=== PATIENT | male | born 1945 | race Caucasian/White ===

== ENCOUNTER 2019-04-17 12:21 | Inpatient (IN) ==
--- NOTE | 2019-04-17 13:01 | Emergency Department Note ---
General Adult HPI - General Chief complaint: Abdominal Pain Stated complaint: abdominal pain Time Seen by Provider: 04/17/19 12:27 Source: patient Mode of arrival: wheelchair Limitations: no limitations - History of Present Illness HPI Narrative: 74-year-old male patient is brought into the emergency department via his caregivers. Patient lives in some form of assisted care facility. His caregivers tell me that over the last week he has been complaining of sharp abdominal pain. This morning patient had a considerably large bowel movement. Caregivers tell me that the stool was much darker than his normal. It covered most of his bed. Patient is been bit more lethargic over the last several days. He has been on multiple courses of antibiotics for cellulitis to his left elbow as well as a developing chest infection. They deny any overt fevers. They deny considerable shortness of breath or respiratory distress. They deny any nausea or vomiting. They admit to worsening generalized weakness. Patient is considered nonambulatory but has been able to assist in movement and positioning until today. A review of his active problems shows the following: Dementia, left elbow contusion with cellulitis, UTI, hypertension, history of smoking, chronic back pain, wheezing, IBS, hypertension, hiatal hernia, epigastric pain, BPH, depression, chronic pain, anxiety, anemia. - Related Data Home Medications Medication Instructions Recorded Confirmed Aspirin [[place] Aspirin EC] 81 mg PO QAM 03/22/19 04/17/19 Celecoxib [Celebrex] 200 mg PO DAILY 03/22/19 04/17/19 Divalproex Sodium [Depakote ER] 250 mg PO BID 03/22/19 04/17/19 Furosemide [Lasix] 20 mg PO Q48 03/22/19 04/17/19 Gabapentin [Neurontin] 400 mg PO Q8 03/22/19 04/17/19 Isosorbide Mononitrate [Imdur] 30 mg PO DAILY 03/22/19 04/17/19 Losartan Potassium 25 mg PO DAILY 03/22/19 04/17/19 Magnesium Oxide [Magnesium] 400 mg PO DAILY 03/22/19 04/17/19 Methocarbamol [Robaxin] 500 mg PO TID 03/22/19 04/17/19 Misoprostol [Cytotec] 100 mcg PO TIDCC 03/22/19 04/17/19 Niacin [Niaspan] 1,000 mg PO DAILY 03/22/19 04/17/19 Sertraline [Zoloft] 100 mg PO DAILY 03/22/19 04/17/19 amLODIPine [Norvasc] 5 mg PO DAILY 03/22/19 04/17/19 levETIRAcetam [Levetiracetam] 1,000 mg PO BID 03/22/19 04/17/19 traZODone HCL [Trazodone HCl] 200 mg PO DAILY 03/22/19 04/17/19 Divalproex 250 mg PO BID 04/17/19 04/17/19 LORazepam [Lorazepam] 0.5 mg PO BID PRN 04/17/19 04/17/19 oxyCODONE HCL [Oxycodone HCl] 5 mg PO PRN PRN 04/17/19 04/17/19 Allergies Allergy/AdvReac Type Severity Reaction Status Date / Time amitriptyline Allergy Unknown Unknown Verified 03/22/19 19:31 tamsulosin [From Flomax] Allergy Unknown Hives Verified 03/22/19 19:31 trazodone Allergy Unknown Hives Verified 03/22/19 19:31 Review of Systems All systems ED: reviewed and negative except as stated. Past Medical History - Past Medical History Medical history: Reports: other (Arthralgias of the hip, chronic back pain, hypertension, hiatal hernia, bph, depression) - Social History smoking status: Former smoker Alcohol use: Reports: Heavy (-4 drinks a day or more) Drug use: Reports: none Physical Exam Limitations: no limitations General appearance: alert (Patient is alert and responds to questioning. He answers some of my questions with simple yes or no. He is able to tell me his full complete name. He is unsure where he is at. He is in no apparent r espiratory distress. He does not appear to be in any pain.) Eye: Present: PERRL, EOMI, miosis (constriction). Absent: scleral icterus ENT: Present: normal oropharynx, mucous membranes moist Neck: Present: trachea midline. Absent: lymphadenopathy, thyromegaly Chest: Present: symmetric chest wall rise Respiratory: Present: normal lung sounds bilaterally. Absent: respiratory distress, wheezes, stridor, accessory muscle use, prolonged expiratory phase Cardiovascular: Present: regular rate, normal rhythm. Absent: systolic murmur, diastolic murmur Abdominal: Present: soft. Absent: distention, tenderness, guarding, rebound, rigidity, organomegaly, mass Rectal: Present: normal inspection, normal rectal tone, heme (-) stool : Present: other (He is currently incontinent of urine.) Extremities: Present: normal inspection. Absent: normal capillary refill (Less than 3 seconds.), pedal edema Neurological: Present: alert. Absent: oriented X3 Psychiatric: Present: depressed, flat affect Skin: Present: cool, dry, pallor Course Course Narrative: Patient was brought into the emergency department and a history and physical exa m was performed. Saline lock was established and laboratory studies were drawn. His abdominal exam was benign so no further abdominal imaging is warranted. His YOU showed negative guaiac stools. A review his laboratory studies show the following: CBC RBC 3.0, hemoglobin 9.8, to 28.7. CMP sodium 121, chloride 87, glucose 111, all other normal limits. After reviewing all the data and noted the patient's profound hyponatremia and I reached out to the hospitalist about possible admission. I spoke to the hospitalist (Dr. Yarbrough) about the patient's low sodium level and need for further management. Dr. Sanz recommended normal saline 1000 mL bolus. I expressed my concerns about the patient having some form of reaction previously with past boluses. Dr. Sanz verbalized understanding but gave the go ahead for the infusion. I ordered up the normal saline bolus from the scene of 500mL x 2. At this time Dr. Sanz has consented to receive the patient into the hospital. All further treatment decisions and modalities will be carried out by Dr. Sanz. Vital Signs Temperature 97.5 F 04/17/19 12:22 Pulse Rate 84 04/17/19 12:22 Respiratory Rate 84 H 04/17/19 12:22 Blood Pressure 129/65 04/17/19 12:22 Pulse Oximetry (%) 97 04/17/19 12:22 Temperature 97.5 F 04/17/19 12:22 Pulse Rate 64 04/17/19 15:43 Respiratory Rate 13 04/17/19 15:43 Blood Pressure 86/47 04/17/19 15:43 Pulse Oximetry (%) 92 04/17/19 15:43 Medical Decision Making - Lab Data Lab results reviewed: Yes I reviewed the patient's lab results. Result diagrams: 04/17/19 13:20 04/17/19 13:20 Lab Results 04/17/19 04/17/19 Range/Units 13:20 13:20 WBC 10.4 (4.5-11.0) K/mcL RBC 3.00 L (4.50-5.90) M/mcL Hgb 9.8 L (13.5-16.5) g/dL Hct 28.7 L (41.0-55.0) % MCV 95.5 (80.0-100.0) fL MCH 32.5 (26.0-34.0) pg MCHC 34.1 (31.0-36.0) g/dL RDW 14.5 (11.5-14.5) % Plt Count 270 (140-440) K/mcL MPV 6.6 L (7.4-10.4) fL Gran % 77.7 (38.0-78.0) % Lymph % (Auto) 9.9 L (15.5-49.0) % [place] % (Auto) 11.5 (1.0-12.0) % Eos % (Auto) 0.7 (0.0-7.0) % Baso % (Auto) 0.2 (0.0-2.0) % Gran # 8.0 (1.8-8.0) K/mcL Lymph # (Auto) 1.0 L (1.5-4.8) K/mcL [place] # (Auto) 1.2 H (0.1-0.9) K/mcL Eos # (Auto) 0.1 (0.0-0.7) K/mcL Baso # (Auto) 0 (0.0-0.3) K/mcL Sodium 121 L (133-145) mmol/L Potassium 4.1 (3.3-5.1) mmol/L Chloride 87 L (96-108) mmol/L Carbon Dioxide 25 (22-30) mmol/L Anion Gap 9.0 (8-16) BUN 16 (8-23) mg/dl Creatinine 0.9 (0.7-1.2) mg/dl GFR Calculation 83 Glucose 111 H (70-105) mg/dL Calcium 8.7 (8.6-10.4) mg/dl Total Bilirubin 0.3 (0.0-1.0) mg/dL AST 16 (0-37) U/l ALT 10 (0-40) U/l Alkaline Phosphatase 94 (39-117) U/L Total Protein 6.4 (5.9-8.4) gm/dL Albumin 3.5 (3.2-5.2) gm/dL Globulin 2.9 (2.2-3.7) gm/dL Albumin/Globulin Ratio 1.2 (1.0-2.3) - EKG Data EKG #1 EKG attestation: Yes I reviewed and interpreted this EKG., Yes There are no EKG findings of acute coronary syndrome, Yes This EKG will be read by light rail operator Disposition Pt seen by MAILMASTER/PA only: Yes Clinical Impression: Hyponatremia, Dementia Hypotension Qualifiers: Hypotension type: other hypotension type Qualified Code(s): I95.89 - Other hypotension Disposition: Xfer As Inpt ([facility]) Condition: Fair Additional Instructions: Patient has been admitted to the hospital under the care of Dr. Sanz (hospitalist). All further treatment decisions and modalities to be carried out by Dr. Sanz. Referrals: Miriam Sanders MD [Primary Care Provider] - Time of Disposition: 16:02
[2019-04-17 14:01] LABS: Basophils # (Auto) 0 K/mcL (0.0-0.3); Basophils % (Auto) 0.2 % (0.0-2.0); Eosinophils # (Auto) 0.1 K/mcL (0.0-0.7); Eosinophils % (Auto) 0.7 % (0.0-7.0); Granulocytes % (Auto) 77.7 % (38.0-78.0); Hematocrit 28.7 % (41.0-55.0); Hemoglobin 9.8 g/dL (13.5-16.5); Lymphocytes % (Auto) 9.9 % (15.5-49.0); Mean Cell Volume 95.5 fL (80.0-100.0); Mean Corpuscular HGB Conc 34.1 g/dL (31.0-36.0); Mean Platelet Volume 6.6 fL (7.4-10.4); Monocytes # (Auto) 1.2 K/mcL (0.1-0.9); Monocytes % (Auto) 11.5 % (1.0-12.0); Platelet Count 270 K/mcL (140-440); Red Cell Distribution Width 14.5 % (11.5-14.5); WBC 10.4 K/mcL (4.5-11.0)
[2019-04-17 14:11] LABS: ALT/SGPT 10 U/l (0-40); AST/SGOT 16 U/l (0-37); Albumin 3.5 gm/dL (3.2-5.2); Albumin/Globulin Ratio 1.2 (1.0-2.3); Alkaline Phosphatase 94 U/L (39-117); Bilirubin,Total 0.3 mg/dL (0.0-1.0); Blood Urea Nitrogen 16 mg/dl (8-23); Calcium 8.7 mg/dl (8.6-10.4); Carbon Dioxide 25 mmol/L (22-30); Globulin 2.9 gm/dL (2.2-3.7); Glomerular Filtration Rate 83; Glucose 111 mg/dL (70-105)
[2019-04-17 14:24] LABS: Chloride 87 mmol/L (96-108)
[2019-04-17] MEDS ORDERED: 0.9 % SODIUM CHLORIDE 1,000 ML IV ONE (15:41)
[2019-04-17] MEDS ORDERED: SENNOSIDES 1 TABLET PO PRN (16:59)
[2019-04-17] MEDS ORDERED: ONDANSETRON 4 MG/2 ML VIAL IV PRN (16:59)
[2019-04-17] MEDS: IPRATROPIUM/ALBUTEROL 3 ML AMPUL.NEB NEB SCH (18:56)
[2019-04-17 19:01] LABS: Blood Urea Nitrogen 18 mg/dl (8-23); Calcium 8.9 mg/dl (8.6-10.4); Carbon Dioxide 24 mmol/L (22-30); Glomerular Filtration Rate 83; Glucose 139 mg/dL (70-105)
[2019-04-17 19:04] LABS: Chloride 88 mmol/L (96-108)
[2019-04-17] MEDS: 0.45 % SODIUM CHLORIDE 1,000 ML IV SCH (19:11)
--- NOTE | 2019-04-17 19:37 | Internal Med History&Physical ---
Medical - H&P: [facility] Patient information: Note initiated : 04/17/19 at 7:37 pm Service Date, if different from initiated Date: [] Patient: Tristan Miller 74 y/o M admitted on 04/17/19 for abdominal pain. Chief Complaint: [] History of present illness: Mr. Miller is a 74 year old M 74-year-old gentle man with a history of dementia with agitation and behavioral problems was brought to the ER by the family and the caregiver because of patient has been complaining of abdominal pain and confusion. The morning patient had a large bowel movement and since then his pain is better but since patient has been more agitated and aggressive is brought to the ER patient and family denied any fever no shortness of breath no nausea no vomiting patient has been having generalized weakness. Review of system otherwise was unremarkable but examination and review of systems was limited due to patient's symptoms. - Constitutional Constitutional: Present: fatigue, lethargy, malaise, weakness. Absent: fever(s), frequent falls, headache(s), increased appetite - Cardiovascular Cardiovascular: Absent: chest pain at rest, chest pain with activity, claudication, diaphoresis, dyspnea on exertion, edema, irregular heart rhythm - Respiratory Respiratory: Absent: cough, dyspnea, hemoptysis, dyspnea on exertion, wheezing - Gastrointestinal Gastrointestinal: Absent: coffee ground emesis, constipation, cramping, diarrhea, dysphagia - Genitourinary Genitourinary: Absent: flank pain, genital lesions, genital pain, hematospermia - Neurological Neurological: Present: confusion, dizziness - Psychiatric Psychiatric: Present: anxiety, auditory hallucinations, change in appetite, difficulty concentrating, hallucinations, mood swings, visual hallucinations Medical - H&P: PMH Medical history: Medical History Hypertension (Acute) Arthralgia of hip (Chronic) Back Pain (Chronic) Loss of appetite (Chronic) Wheezing (Chronic) Irritable bowel syndrome (Chronic) Hypertension, essential (Chronic) Sliding hiatal hernia (Chronic) Flatulence, eructation and gas pain (Chronic) Epigastric pain (Chronic) Enlarged prostate (Chronic) Depression (Chronic) Cough (Chronic) Chronic pain (Chronic) Bloating (Chronic) Anxiety attack (Chronic) Anemia (Chronic) Abdominal pain (Acute) Duodenitis (Resolved) Meningitis (Resolved) Surgical history: Past Surgical History History of laminectomy (Chronic 02/14/17) History of back surgery (Resolved) History of colonoscopy (Resolved 03/02/13) History of esophagogastroduodenoscopy (Resolved 11/22/13) Pertinent family history: Family History Brother Family history of malignant neoplasm Sister Malignant neoplasm of both lungs Social history: Social History No Social History Section defined Medical - H&P: Meds Home Medications Medication Instructions Recorded Confirmed Type Aspirin [Swain Aspirin EC] 81 mg PO QAM 03/22/19 04/17/19 History Celecoxib [Celebrex] 200 mg PO DAILY 03/22/19 04/17/19 History Divalproex Sodium [Depakote ER] 250 mg PO BID 03/22/19 04/17/19 History Furosemide [Lasix] 20 mg PO Q48 03/22/19 04/17/19 History Gabapentin [Neurontin] 400 mg PO Q8 03/22/19 04/17/19 History Isosorbide Mononitrate [Imdur] 30 mg PO DAILY 03/22/19 04/17/19 History Losartan Potassium 25 mg PO DAILY 03/22/19 04/17/19 History Magnesium Oxide [Magnesium] 400 mg PO DAILY 03/22/19 04/17/19 History Methocarbamol [Robaxin] 500 mg PO TID 03/22/19 04/17/19 History Misoprostol [Cytotec] 100 mcg PO TIDCC 03/22/19 04/17/19 History Niacin [Niaspan] 1,000 mg PO DAILY 03/22/19 04/17/19 History Sertraline [Zoloft] 100 mg PO DAILY 03/22/19 04/17/19 History amLODIPine [Norvasc] 5 mg PO DAILY 03/22/19 04/17/19 History levETIRAcetam [Levetiracetam] 1,000 mg PO BID 03/22/19 04/17/19 History traZODone HCL [Trazodone HCl] 200 mg PO DAILY 03/22/19 04/17/19 History Divalproex 250 mg PO BID 04/17/19 04/17/19 History LORazepam [Lorazepam] 0.5 - 1 mg PO Q6HP PRN 04/17/19 04/18/19 History oxyCODONE HCL [Oxycodone HCl] 5 mg PO PRN PRN 04/17/19 04/17/19 History Allergies Allergy/AdvReac Type Severity Reaction Status Date / Time amitriptyline Allergy Severe Swelling Verified 04/17/19 21:00 tamsulosin [From Flomax] Allergy Mild Hives Verified 04/17/19 21:00 trazodone Allergy Mild Hives Verified 04/17/19 21:00 Medical - H&P: Exam - Constitutional Vitals: Temp Pulse Resp BP Pulse Ox 98 F 74 18 96/52 96 04/17/19 19:15 04/17/19 19:15 04/17/19 19:15 04/17/19 19:15 04/17/19 19:15 General appearance: severe distress - Head Head exam: Present: atraumatic, normal inspection - Expanded Head Exam Head exam: Absent: abrasion, Crespo's sign, contusion - Eye Eye exam: Present: PERRL. Absent: conjunctival injection, nystagmus - ENT ENT exam: Present: mucous membranes dry, normal exam, normal external ear exam - Expanded ENT Exam Ear exam: Absent: auricular hematoma, auricular trauma, external canal tenderness - Neck Neck exam: Present: full ROM, normal inspection. Absent: lymphadenopathy, meningismus - Expanded Neck Exam Neck exam: Absent: anterior neck swelling, carotid bruit, thyroid mass - Respiratory Respiratory exam: Present: normal respiratory exam, decreased breath sounds. Absent: accessory muscle use, chest wall tenderness - Cardiovascular Cardiovascular exam: Present: normal rate and rhythm, gallop. Absent: bradycardia, diastolic murmur, +S3, +S4, systolic murmur - GI/Abdominal GI/Abdominal exam: Present: normal bowel sounds, soft, distended. Absent: guarding - Neurological Exam Neurological exam: Present: alert, reflexes normal. Absent: motor sensory deficit - Psychiatric Psychiatric exam: Present: agitated, anxious - Expanded Psychiatric Exam Focused psych exam: Present: delusional, paranoid Medical - H&P: Reslt - Labs CBC & Chem 7: 04/18/19 04:30 04/18/19 12:50 Labs: Short CBC 04/17/19 Range/Units 13:20 WBC 10.4 (4.5-11.0) K/mcL Hgb 9.8 L (13.5-16.5) g/dL Hct 28.7 L (41.0-55.0) % Plt Count 270 (140-440) K/mcL BMP 04/17/19 04/17/19 13:20 17:18 Sodium 121 L 122 L Potassium 4.1 3.8 Chloride 87 L 88 L Carbon Dioxide 25 24 BUN 16 18 Creatinine 0.9 0.9 Glucose 111 H 139 H Calcium 8.7 8.9 Liver Function 04/17/19 Range/Units 13:20 Total Bilirubin 0.3 (0.0-1.0) mg/dL AST 16 (0-37) U/l ALT 10 (0-40) U/l Alkaline Phosphatase 94 (39-117) U/L Albumin 3.5 (3.2-5.2) gm/dL Medical - H&P: A/P - Narrative A/P Narrative: Critical hyponatremia probable SIADH versus drug-induced Patient is having acute abdominal pain and sodium was 120 Previous history of cardiac arrhythmia with hyponatremia Ordered normal saline Monitor sodium every 6 hourly If it is not improving will consider hypertonic saline Acute encephalopathy and delirium Underlying dementia Patient was having hallucinations and confusion and agitation We will use Haldol 1 mg every 4 hours Chronic anemia Hemoglobin has been around 9 no evidence of acute bleed Chronic back pain Will use his oxycodone home dose We will try to minimize use of narcotics due to agitation and encephalopathy DVT prophylaxis-SCDs and subcu heparin CODE STATUS-DNR verified with the family Expected length of stay-at least 2 midnights
[2019-04-17] MEDS: 0.9 % SODIUM CHLORIDE 10 ML SYRINGE IV SCH (21:02)
[2019-04-17] MEDS: HEPARIN 5,000 UNIT/ML VIAL SQ SCH (21:16)
[2019-04-17 21:59] LABS: Blood Urea Nitrogen 17 mg/dl (8-23); Calcium 8.9 mg/dl (8.6-10.4); Carbon Dioxide 21 mmol/L (22-30); Glomerular Filtration Rate 87; Glucose 106 mg/dL (70-105)
[2019-04-17 22:15] LABS: Chloride 88 mmol/L (96-108)
[2019-04-18] MEDS: IPRATROPIUM/ALBUTEROL 3 ML AMPUL.NEB NEB SCH ×5 (00:17→17:33)
[2019-04-18 01:40] LABS: Blood Urea Nitrogen 16 mg/dl (8-23); Calcium 8.7 mg/dl (8.6-10.4); Carbon Dioxide 21 mmol/L (22-30); Glomerular Filtration Rate 87; Glucose 95 mg/dL (70-105)
[2019-04-18 01:41] LABS: Chloride 85 mmol/L (96-108)
[2019-04-18] MEDS ORDERED: QUEtiapine 25 MG TABLET PO STA (02:49)
[2019-04-18] MEDS ORDERED: QUEtiapine 25 MG TABLET ONE (02:54)
[2019-04-18] MEDS: 0.9 % SODIUM CHLORIDE 10 ML SYRINGE IV SCH ×3 (05:41→20:16)
[2019-04-18 06:12] LABS: Basophils # (Auto) 0 K/mcL (0.0-0.3); Basophils % (Auto) 0.1 % (0.0-2.0); Eosinophils # (Auto) 0.1 K/mcL (0.0-0.7); Granulocytes % (Auto) 80.7 % (38.0-78.0); Hemoglobin 9.4 g/dL (13.5-16.5); Lymphocytes % (Auto) 9.4 % (15.5-49.0); Mean Cell Volume 96.1 fL (80.0-100.0); Mean Corpuscular HGB Conc 33.5 g/dL (31.0-36.0); Mean Platelet Volume 6.8 fL (7.4-10.4); Monocytes # (Auto) 0.9 K/mcL (0.1-0.9); Monocytes % (Auto) 8.8 % (1.0-12.0); Platelet Count 259 K/mcL (140-440); RBC 2.91 M/mcL (4.50-5.90); Red Cell Distribution Width 14.3 % (11.5-14.5); WBC 10.5 K/mcL (4.5-11.0)
[2019-04-18] MEDS: 0.45 % SODIUM CHLORIDE 1,000 ML IV SCH ×2 (06:42→19:51)
[2019-04-18 06:43] LABS: Blood Urea Nitrogen 14 mg/dl (8-23); Calcium 8.6 mg/dl (8.6-10.4); Carbon Dioxide 20 mmol/L (22-30); Glucose 94 mg/dL (70-105)
[2019-04-18 06:46] LABS: Chloride 86 mmol/L (96-108); Glomerular Filtration Rate 98
[2019-04-18] MEDS: DIVALPROEX SODIUM 250 MG TABLET PO SCH ×3 (07:15→22:12)
[2019-04-18] MEDS: HALOPERIDOL LACTATE 5 MG/ML VIAL IV PRN ×2 (11:18→15:10)
[2019-04-18 11:27] LABS: Blood Urea Nitrogen 11 mg/dl (8-23); Calcium 8.9 mg/dl (8.6-10.4); Carbon Dioxide 23 mmol/L (22-30); Glomerular Filtration Rate 98; Glucose 115 mg/dL (70-105)
[2019-04-18] MEDS ORDERED: SODIUM CHLORIDE 3 % 500 ML IV ONE (11:30)
[2019-04-18 11:38] LABS: Chloride 89 mmol/L (96-108)
[2019-04-18] MEDS: levETIRAcetam 500 MG TABLET PO SCH ×3 (12:10→22:51)
[2019-04-18] MEDS: HEPARIN 5,000 UNIT/ML VIAL SQ SCH ×2 (12:10→20:16)
[2019-04-18 14:05] LABS: Blood Urea Nitrogen 9 mg/dl (8-23); Calcium 8.9 mg/dl (8.6-10.4); Carbon Dioxide 24 mmol/L (22-30); Chloride 89 mmol/L (96-108); Glomerular Filtration Rate 106; Glucose 127 mg/dL (70-105)
[2019-04-18] MEDS: OLANZapine 2.5 MG TABLET PO PRN (15:53)
[2019-04-18] MEDS ORDERED: oxyCODONE HCL 5 MG TABLET PO ONE (19:47)
[2019-04-18] MEDS ORDERED: LORazepam 0.5 MG TABLET ONE (19:47)
[2019-04-18] MEDS: LORazepam 0.5 MG TABLET PO PRN (19:48)
[2019-04-18] MEDS: oxyCODONE HCL 5 MG TABLET PO PRN (19:49)
[2019-04-18] MEDS: QUEtiapine 25 MG TABLET PO SCH ×2 (20:16→22:30)
[2019-04-18] MEDS ORDERED: HALOPERIDOL LACTATE 5 MG/ML VIAL IV ONE (20:50)
[2019-04-18] MEDS ORDERED: HALOPERIDOL LACTATE 5 MG/ML VIAL ONE (20:53)
--- NOTE | 2019-04-18 21:36 | Internal Med Progress Note ---
Medical - PN: Subj Patient information: Note initiated : 04/18/19 at 9:34 pm Service Date, if different from initiated Date: [] Patient: Tristan Miller 74 y/o M admitted on 04/17/19 for abdominal pain. Chief Complaint: [] Interval history: His sodium did not improve overnight and will start him on 3% hypertonic saline He remained very agitated and encephalopathic and delirious and added Zyprexa in addition to the Haldol If it is not working then we will try Haldol 5 mg IV Pertinent ROS: Review of systems-unable to obtain due to mental status changes - Constitutional Vitals: Vital Signs Temp Pulse Resp BP Pulse Ox 97.4 F 84 20 166/75 97 04/18/19 19:26 04/18/19 19:26 04/18/19 19:26 04/18/19 19:26 04/18/19 19:26 Period Temp Pulse Resp BP Sys/King Pulse Ox Last 24 Hr 96.8 F-98.7 F 66-89 12-20 118-166/56-75 95-98 Intake and Output 04/18/19 04/18/19 04/18/19 05:59 13:59 21:59 Intake Total 750 1274 650 Output Total 450 625 550 Balance 300 649 100 Weight 125 lb Patient Weight 04/19/19 05:59 Weight 125 lb Intake & Output: Intake & Output 04/18/19 04/18/19 04/18/19 05:59 13:59 21:59 Intake Total 750 1274 650 Output Total 450 625 550 Balance 300 649 100 Weight 125 lb Intake: IV 864 Sodium Chloride 0.45% 1,000 ml 864 @ 75 mls/hr IV .[id number] [facility] Rx# :[id number] Oral 750 410 650 Output: Void Amount 450 350 500 Stool 275 50 Other: Meal Breakfast Dinner Percent of Meal Consumed bites 0% Feeding Ability Total Assistance Total Assistance Urine Appearance Clear Clear Clear Urine Color Bright Yellow Bright Yellow Pale Urine Odor Normal Normal Stool Size Small Small Stool Color Brown Yellow Yellow Stool Consistency Loose Watery Liquid Watery # Voids 100 # Bowel Movements 1 # of times incontinent of 2 Bowels - Head Head exam: Present: normal inspection - Eye Eye exam: Present: conjunctival injection, normal appearance - ENT ENT exam: Present: mucous membranes moist, normal exam - Neck Neck exam: Present: full ROM, normal inspection. Absent: meningismus - Respiratory Respiratory exam: Present: normal respiratory exam. Absent: accessory muscle use, chest wall tenderness, decreased breath sounds - Cardiovascular Cardiovascular exam: Absent: bradycardia, clicks, diastolic murmur - GI/Abdominal GI/Abdominal exam: Present: normal bowel sounds, soft, distended. Absent: bruit - Neurological Exam Neurological exam: Present: alert, reflexes normal. Absent: motor sensory deficit, oriented X3 - Psychiatric Psychiatric exam: Present: agitated, anxious Medical - PN: Obj Da - Labs CBC & Chem 7: 04/18/19 04:30 04/18/19 12:50 Labs: Abnormal Lab Results 04/18/19 04/18/19 04/18/19 12:50 08:46 04:30 RBC Hgb Hct MPV Gran % Lymph % (Auto) Gran # Lymph # (Auto) [place] # (Auto) Sodium 125 L 125 L 120 L Chloride 89 L 89 L 86 L Carbon Dioxide 20 L Creatinine 0.5 L 0.6 L 0.6 L Glucose 127 H 115 H 04/18/19 04/18/19 04/17/19 04:30 00:50 21:00 RBC 2.91 L Hgb 9.4 L Hct 28.0 L MPV 6.8 L Gran % 80.7 H Lymph % (Auto) 9.4 L Gran # 8.5 H Lymph # (Auto) 1.0 L [place] # (Auto) Sodium 120 L 119 L* Chloride 85 L 88 L Carbon Dioxide 21 L 21 L Creatinine Glucose 106 H 04/17/19 04/17/19 04/17/19 17:18 13:20 13:20 RBC 3.00 L Hgb 9.8 L Hct 28.7 L MPV 6.6 L Gran % Lymph % (Auto) 9.9 L Gran # Lymph # (Auto) 1.0 L [place] # (Auto) 1.2 H Sodium 122 L 121 L Chloride 88 L 87 L Carbon Dioxide Creatinine Glucose 139 H 111 H Meds: Medications Divalproex Sodium (Depakote Er) 250 mg PO BID [facility] Last Admin: 04/18/19 07:15 Dose: 250 mg Documented by: Heparin Sodium (Porcine) (Heparin) 5,000 unit SQ Q12 [facility] Last Admin: 04/18/19 20:16 Dose: 5,000 unit Documented by: Sodium Chloride (Sodium Chloride 0.45%) 1,000 mls @ 75 mls/hr IV .[id number] [facility] Last Admin: 04/18/19 19:51 Dose: Not Given Documented by: Sodium Chloride (Sodium Chloride 3%) 500 mls @ 20 mls/hr IV ONCE ONE Stop: 04/19/19 12:29 Last Admin: 04/18/19 12:11 Dose: 20 mls/hr Documented by: Levetiracetam (Keppra) 1,000 mg PO BID [facility] Last Admin: 04/18/19 12:10 Dose: 1,000 mg Documented by: Lorazepam (Ativan) 0.5 mg PO Q8HP PRN PRN Reason: ANXIETY/SEDATION Last Admin: 04/18/19 19:48 Dose: 0.5 mg Documented by: Olanzapine (Zyprexa) 2.5 mg PO Q6HP PRN PRN Reason: Anxiety Last Admin: 04/18/19 15:53 Dose: 2.5 mg Documented by: Ondansetron HCl (Zofran) 4 mg IV Q4HP PRN; Protocol PRN Reason: Nausea And Vomiting Oxycodone HCl (Roxicodone) 5 mg PO Q8HP PRN; Protocol PRN Reason: Per Pain Protocol Last Admin: 04/18/19 19:49 Dose: 5 mg Documented by: Quetiapine Fumarate (Seroquel) 25 mg PO HS [facility] Senna (Senokot) 2 tab PO HSP PRN PRN Reason: Constipation Sodium Chloride (Saline Flush) 10 ml IV Q8 [facility] Last Admin: 04/18/19 20:16 Dose: Not Given Documented by: Medical - PN: A/P - Time Spent With Patient Total time spent is greater than 50% in coordination of care (as documented) at patient's floor/unit and/or counseling patient: - Narrative A/P Narrative: critical hyponatremia probable SIADH versus drug-induced Sodium did not improve with IV hydration We will start him on 3% hypertonic saline We will monitor sodium every 6 hourly Acute encephalopathy and acute delirium Underlying dementia His agitation and behavioral changes remains the same Ordered Zyprexa 2.5 p.o. in addition to the Haldol If he does not improve we will use Haldol 5 mg We will restart his home lorazepam 0.5 every 8 hourly Restart his home oxycodone We will use Haldol 1 mg every 4 hours Chronic anemia Hemoglobin has been around 9 no evidence of acute bleed Chronic back pain Will use his oxycodone home dose We will try to minimize use of narcotics due to agitation and encephalopathy DVT prophylaxis-SCDs and subcu heparin CODE STATUS-DNR verified with the family Expected length of stay-at least 1-2 midnights
[2019-04-18] MEDS ORDERED: OLANZapine 10 MG VIAL IM ONE (22:13)
[2019-04-18] MEDS: OLANZapine 10 MG VIAL IM PRN (22:25)
[2019-04-19] MEDS: 0.9 % SODIUM CHLORIDE 10 ML SYRINGE IV SCH ×2 (05:22→15:08)
[2019-04-19] MEDS: LORazepam 0.5 MG TABLET PO PRN (05:25)
[2019-04-19] MEDS: oxyCODONE HCL 5 MG TABLET PO PRN ×3 (05:26→20:34)
[2019-04-19] MEDS: HEPARIN 5,000 UNIT/ML VIAL SQ SCH ×2 (08:08→20:33)
[2019-04-19] MEDS: OLANZapine 10 MG VIAL IM PRN (08:09)
[2019-04-19] MEDS: levETIRAcetam 500 MG TABLET PO SCH ×2 (08:09→20:34)
[2019-04-19] MEDS: DIVALPROEX SODIUM 250 MG TABLET PO SCH ×2 (08:09→20:34)
[2019-04-19 10:56] LABS: Calcium 8.9 mg/dl (8.6-10.4); Carbon Dioxide 24 mmol/L (22-30); Glomerular Filtration Rate 106; Glucose 104 mg/dL (70-105)
[2019-04-19] MEDS: 0.45 % SODIUM CHLORIDE 1,000 ML IV SCH (11:12)
[2019-04-19 11:24] LABS: Blood Urea Nitrogen 5 mg/dl (8-23); Chloride 99 mmol/L (96-108)
[2019-04-19] MEDS: OLANZapine 2.5 MG TABLET PO PRN (15:08)
[2019-04-19 16:33] LABS: Carbon Dioxide 26 mmol/L (22-30); Chloride 99 mmol/L (96-108); Glomerular Filtration Rate 98; Glucose 84 mg/dL (70-105)
[2019-04-19 16:34] LABS: Blood Urea Nitrogen 9 mg/dl (8-23)
[2019-04-19] MEDS: QUEtiapine 25 MG TABLET PO SCH (20:34)
--- NOTE | 2019-04-19 21:02 | Internal Med Progress Note ---
Medical - PN: Subj Patient information: Note initiated : 04/19/19 at 9:01 pm Service Date, if different from initiated Date: [] Patient: Tristan Miller 74 y/o M admitted on 04/17/19 for abdominal pain. Chief Complaint: [] Interval history: 04/18- His sodium did not improve overnight and will start him on 3% hypertonic saline He remained very agitated and encephalopathic and delirious and added Zyprexa in addition to the Haldol If it is not working then we will try Haldol 5 mg IV 04/19-his mental status improved his sodium improved to 134 and we stopped hypertonic saline We will use Zyprexa p.o. if he can take p.o. His mental status slightly improved Continue lorazepam 0.5, Zyprexa and Haldol as needed Pertinent ROS: Review of system-unable to obtain - Constitutional Vitals: Vital Signs Temp Pulse Resp BP Pulse Ox 98.2 F 61 20 124/56 95 04/19/19 15:27 04/19/19 12:31 04/19/19 15:27 04/19/19 15:27 04/19/19 12:31 Period Temp Pulse Resp BP Sys/King Pulse Ox Last 24 Hr 97.7 F-98.4 F 55-77 12-20 124-174/56-81 95-97 Intake and Output 04/19/19 04/19/19 04/19/19 05:59 13:59 21:59 Intake Total 300 1020 480 Output Total 401 3 101 Balance -101 1017 379 Weight 125 lb 126 lb 6.4 oz Patient Weight 04/20/19 05:59 Weight 126 lb 6.4 oz Intake & Output: Intake & Output 04/19/19 04/19/19 04/19/19 05:59 13:59 21:59 Intake Total 300 1020 480 Output Total 401 3 101 Balance -101 1017 379 Weight 125 lb 126 lb 6.4 oz Intake: Nourishment/Supplement quantity 720 240 (ml) Oral 300 300 240 Output: Void Amount 400 100 # of times incontinent of urine 1 3 1 Other: Meal Nourishment/Supplement Dinner Percent of Meal Consumed 100% 75% Feeding Ability Needs Supervision Nourishment/Supplement name Ensure Ensure Urine Appearance Clear Urine Color Bright Yellow Bright Yellow Dark Yellow Urine Odor Strong Strong Stool Size Small Small Stool Color Brown Brown Stool Consistency Soft Soft Formed # Bowel Movements 1 1 # of times incontinent of 1 Bowels - Head Head exam: Present: atraumatic, normal inspection - Eye Eye exam: Absent: nystagmus Pupils: Present: PERRL - ENT ENT exam: Present: mucous membranes moist, normal exam - Neck Neck exam: Present: normal inspection. Absent: lymphadenopathy, meningismus - Respiratory Respiratory exam: Present: decreased breath sounds. Absent: accessory muscle use, chest wall tenderness, respiratory distress - Cardiovascular Cardiovascular exam: Present: normal rate and rhythm. Absent: bradycardia, diastolic murmur - GI/Abdominal GI/Abdominal exam: Absent: bruit, distended, guarding - Neurological Exam Neurological exam: Present: alert, altered, motor sensory deficit Medical - PN: Obj Da - Labs CBC & Chem 7: 04/18/19 04:30 04/19/19 14:49 Labs: Abnormal Lab Results 04/19/19 04/19/19 04/18/19 14:49 09:12 12:50 RBC Hgb Hct MPV Gran % Lymph % (Auto) Gran # Lymph # (Auto) Banks # (Auto) Sodium 125 L Chloride 89 L Carbon Dioxide BUN 5 L Creatinine 0.6 L 0.5 L 0.5 L Glucose 127 H 04/18/19 04/18/19 04/18/19 08:46 04:30 04:30 RBC 2.91 L Hgb 9.4 L Hct 28.0 L MPV 6.8 L Gran % 80.7 H Lymph % (Auto) 9.4 L Gran # 8.5 H Lymph # (Auto) 1.0 L Banks # (Auto) Sodium 125 L 120 L Chloride 89 L 86 L Carbon Dioxide 20 L BUN Creatinine 0.6 L 0.6 L Glucose 115 H 04/18/19 04/17/19 04/17/19 00:50 21:00 17:18 RBC Hgb Hct MPV Gran % Lymph % (Auto) Gran # Lymph # (Auto) Banks # (Auto) Sodium 120 L 119 L* 122 L Chloride 85 L 88 L 88 L Carbon Dioxide 21 L 21 L BUN Creatinine Glucose 106 H 139 H 04/17/19 04/17/19 13:20 13:20 RBC 3.00 L Hgb 9.8 L Hct 28.7 L MPV 6.6 L Gran % Lymph % (Auto) 9.9 L Gran # Lymph # (Auto) 1.0 L Banks # (Auto) 1.2 H Sodium 121 L Chloride 87 L Carbon Dioxide BUN Creatinine Glucose 111 H Meds: Medications Divalproex Sodium (Depakote Er) 250 mg PO BID [facility] Last Admin: 04/19/19 20:34 Dose: 250 mg Documented by: Heparin Sodium (Porcine) (Heparin) 5,000 unit SQ Q12 [facility] Last Admin: 04/19/19 20:33 Dose: 5,000 unit Documented by: Sodium Chloride (Sodium Chloride 0.45%) 1,000 mls @ 75 mls/hr IV .[id number] [facility] Last Admin: 04/19/19 11:12 Dose: Not Given Documented by: Levetiracetam (Keppra) 1,000 mg PO BID [facility] Last Admin: 04/19/19 20:34 Dose: 1,000 mg Documented by: Lorazepam (Ativan) 0.5 mg PO Q8HP PRN PRN Reason: ANXIETY/SEDATION Last Admin: 04/19/19 05:25 Dose: 0.5 mg Documented by: Olanzapine (Zyprexa) 2.5 mg PO Q6HP PRN PRN Reason: Anxiety Last Admin: 04/19/19 15:08 Dose: 2.5 mg Documented by: Olanzapine (Zyprexa) 2.5 mg IM Q6HP PRN PRN Reason: Agitation Last Admin: 04/19/19 08:09 Dose: 2.5 mg Documented by: Ondansetron HCl (Zofran) 4 mg IV Q4HP PRN; Protocol PRN Reason: Nausea And Vomiting Oxycodone HCl (Roxicodone) 5 mg PO Q8HP PRN; Protocol PRN Reason: Per Pain Protocol Last Admin: 04/19/19 20:34 Dose: 5 mg Documented by: Quetiapine Fumarate (Seroquel) 25 mg PO HS [facility] Last Admin: 04/19/19 20:34 Dose: 25 mg Documented by: Senna (Senokot) 2 tab PO HSP PRN PRN Reason: Constipation Sodium Chloride (Saline Flush) 10 ml IV Q8 [facility] Last Admin: 04/19/19 15:08 Dose: 10 ml Documented by: Medical - PN: A/P - Time Spent With Patient Total time spent is greater than 50% in coordination of care (as documented) at patient's floor/unit and/or counseling patient: - Narrative A/P Narrative: critical hyponatremia probable SIADH versus drug-induced Sodium is 134 after 24 hours of hypertonic saline We will stop his SSRI and SNRI which might be causing hyponatremia Monitor his sodium daily Acute encephalopathy and acute delirium improved Underlying dementia His agitation and behavioral changes remains the same Ordered Zyprexa 2.5 p.o. in addition to the Haldol Haldol as needed home lorazepam 0.5 every 8 hourly Restart his home oxycodone Chronic anemia Hemoglobin has been around 9 no evidence of acute bleed Chronic back pain Will use his oxycodone home dose We will try to minimize use of narcotics due to agitation and encephalopathy DVT prophylaxis-SCDs and subcu heparin CODE STATUS-DNR verified with the family Expected length of stay-at least 1-2 midnights
[2019-04-19 21:58] LABS: Blood Urea Nitrogen 13 mg/dl (8-23); Calcium 9.1 mg/dl (8.6-10.4); Carbon Dioxide 22 mmol/L (22-30); Chloride 98 mmol/L (96-108); Glomerular Filtration Rate 98; Glucose 138 mg/dL (70-105)
[2019-04-20] MEDS: OLANZapine 2.5 MG TABLET PO PRN ×2 (00:08→12:20)
[2019-04-20] MEDS: LORazepam 0.5 MG TABLET PO PRN ×2 (00:08→23:28)
[2019-04-20] MEDS: 0.9 % SODIUM CHLORIDE 10 ML SYRINGE IV SCH ×4 (01:45→22:39)
[2019-04-20] MEDS: 0.45 % SODIUM CHLORIDE 1,000 ML IV SCH (01:46)
--- NOTE | 2019-04-20 07:23 | Internal Med Progress Note ---
Medical - PN: Subj Patient information: Note initiated : 04/20/19 at 7:22 am Service Date, if different from initiated Date: [] Patient: Tristan Miller 74 y/o M admitted on 04/17/19 for abdominal pain. Chief Complaint: [] Interval history: 04/18- His sodium did not improve overnight and will start him on 3% hypertonic saline He remained very agitated and encephalopathic and delirious and added Zyprexa in addition to the Haldol If it is not working then we will try Haldol 5 mg IV 04/19-his mental status improved his sodium improved to 134 and we stopped hypertonic saline We will use Zyprexa p.o. if he can take p.o. His mental status slightly improved Continue lorazepam 0.5, Zyprexa and Haldol as needed 04/20-IV fluids stopped his sodium remained more than 130, we will discontinue IM Zyprexa and continue with p.o. Zyprexa every 6 hours as needed and lorazepam 0.5 3 times daily as needed. We will have physical therapy evaluate . His mental status seems to be improved compared to admission his encephalopathy improving. Pertinent ROS: General-denied any distress Chest-no chest pain no palpitations Respiratory-no breathing difficulty no occasional cough reported Abdomen-distended but no tenderness no diarrhea Neuro-intermittent confusion otherwise no focal neuro deficit - Constitutional Vitals: Vital Signs Temp Pulse Resp BP Pulse Ox 97.7 F 63 16 128/68 97 04/20/19 04:00 04/20/19 04:00 04/20/19 04:00 04/20/19 04:00 04/20/19 04:00 Period Temp Pulse Resp BP Sys/King Pulse Ox Last 24 Hr 97.7 F-98.6 F 55-65 14-20 122-174/56-81 95-97 Intake and Output 04/19/19 04/20/19 04/20/19 21:59 05:59 13:59 Intake Total 480 Output Total 201 1 Balance 279 -1 Weight 126 lb 6.4 oz Intake & Output: Intake & Output 04/19/19 04/20/19 04/20/19 21:59 05:59 13:59 Intake Total 480 Output Total 201 1 Balance 279 -1 Weight 126 lb 6.4 oz Intake: Nourishment/Supplement quantity 240 (ml) Oral 240 Output: Void Amount 200 # of times incontinent of urine 1 1 Other: Meal Dinner Percent of Meal Consumed 75% Feeding Ability Needs Supervision Nourishment/Supplement name Ensure Urine Appearance Clear Urine Color Bright Yellow Urine Odor Normal Stool Size Small Stool Color Brown Stool Consistency Soft Formed # Bowel Movements 1 # of times incontinent of 1 Bowels - Head Head exam: Present: atraumatic, normal inspection - Eye Eye exam: Present: conjunctival injection, PERRL. Absent: nystagmus, periorbital tenderness - ENT ENT exam: Present: mucous membranes moist, normal exam - Neck Neck exam: Present: full ROM, normal inspection. Absent: meningismus, tenderness - Respiratory Respiratory exam: Present: decreased breath sounds. Absent: respiratory distress - Cardiovascular Cardiovascular exam: Present: normal rate and rhythm. Absent: bradycardia, diastolic murmur - GI/Abdominal GI/Abdominal exam: Present: normal bowel sounds, soft, distended - Neurological Exam Neurological exam: Present: alert, reflexes normal. Absent: motor sensory deficit, oriented X3 - Psychiatric Psychiatric exam: Present: anxious Medical - PN: Obj Da - Labs CBC & Chem 7: 04/18/19 04:30 04/19/19 20:52 Labs: Abnormal Lab Results 04/19/19 04/19/19 04/19/19 20:52 14:49 09:12 RBC Hgb Hct MPV Gran % Lymph % (Auto) Gran # Lymph # (Auto) Wilson # (Auto) Sodium Chloride Carbon Dioxide BUN 5 L Creatinine 0.6 L 0.6 L 0.5 L Glucose 138 H 04/18/19 04/18/19 04/18/19 12:50 08:46 04:30 RBC Hgb Hct MPV Gran % Lymph % (Auto) Gran # Lymph # (Auto) Wilson # (Auto) Sodium 125 L 125 L 120 L Chloride 89 L 89 L 86 L Carbon Dioxide 20 L BUN Creatinine 0.5 L 0.6 L 0.6 L Glucose 127 H 115 H 04/18/19 04/18/19 04/17/19 04:30 00:50 21:00 RBC 2.91 L Hgb 9.4 L Hct 28.0 L MPV 6.8 L Gran % 80.7 H Lymph % (Auto) 9.4 L Gran # 8.5 H Lymph # (Auto) 1.0 L Wilson # (Auto) Sodium 120 L 119 L* Chloride 85 L 88 L Carbon Dioxide 21 L 21 L BUN Creatinine Glucose 106 H 04/17/19 04/17/19 04/17/19 17:18 13:20 13:20 RBC 3.00 L Hgb 9.8 L Hct 28.7 L MPV 6.6 L Gran % Lymph % (Auto) 9.9 L Gran # Lymph # (Auto) 1.0 L Wilson # (Auto) 1.2 H Sodium 122 L 121 L Chloride 88 L 87 L Carbon Dioxide BUN Creatinine Glucose 139 H 111 H Meds: Medications Divalproex Sodium (Depakote Er) 250 mg PO BID [facility] Last Admin: 04/19/19 20:34 Dose: 250 mg Documented by: Heparin Sodium (Porcine) (Heparin) 5,000 unit SQ Q12 [facility] Last Admin: 04/19/19 20:33 Dose: 5,000 unit Documented by: Levetiracetam (Keppra) 1,000 mg PO BID [facility] Last Admin: 04/19/19 20:34 Dose: 1,000 mg Documented by: Lorazepam (Ativan) 0.5 mg PO Q8HP PRN PRN Reason: ANXIETY/SEDATION Last Admin: 04/20/19 00:08 Dose: 0.5 mg Documented by: Olanzapine (Zyprexa) 2.5 mg PO Q6HP PRN PRN Reason: Anxiety Last Admin: 04/20/19 00:08 Dose: 2.5 mg Documented by: Ondansetron HCl (Zofran) 4 mg IV Q4HP PRN; Protocol PRN Reason: Nausea And Vomiting Oxycodone HCl (Roxicodone) 5 mg PO Q8HP PRN; Protocol PRN Reason: Per Pain Protocol Last Admin: 04/19/19 20:34 Dose: 5 mg Documented by: Quetiapine Fumarate (Seroquel) 25 mg PO HS [facility] Last Admin: 04/19/19 20:34 Dose: 25 mg Documented by: Senna (Senokot) 2 tab PO HSP PRN PRN Reason: Constipation Sodium Chloride (Saline Flush) 10 ml IV Q8 [facility] Last Admin: 04/20/19 05:19 Dose: 10 ml Documented by: Medical - PN: A/P - Time Spent With Patient Total time spent is greater than 50% in coordination of care (as documented) at patient's floor/unit and/or counseling patient: - Narrative A/P Narrative: critical hyponatremia probable SIADH versus [id number] Sodium remains 133 and he received hypertonic saline for 36 hours We will stop his SSRI and SNRI which might be causing hyponatremia Monitor his sodium daily Acute encephalopathy and acute delirium improved Underlying dementia His agitation and behavioral changes remains the same We will discontinue Zyprexa IM and will continue with Zyprexa p.o. Discontinue Haldol home lorazepam 0.5 every 8 hourly Continue oxycodone 5 mg home dose Chronic anemia Hemoglobin has been around 9 no evidence of acute bleed Chronic back pain Will use his oxycodone home dose We will try to minimize use of narcotics due to agitation and encephalopathy DVT prophylaxis-SCDs and subcu heparin CODE STATUS-DNR verified with the family Expected length of stay-at least 1 midnights
[2019-04-20] MEDS: HEPARIN 5,000 UNIT/ML VIAL SQ SCH ×2 (09:34→23:50)
[2019-04-20] MEDS: oxyCODONE HCL 5 MG TABLET PO PRN ×2 (09:35→22:38)
[2019-04-20] MEDS: DIVALPROEX SODIUM 250 MG TABLET PO SCH ×2 (09:35→22:38)
[2019-04-20] MEDS: levETIRAcetam 500 MG TABLET PO SCH ×2 (09:35→22:38)
[2019-04-20] MEDS: QUEtiapine 25 MG TABLET PO SCH (22:38)
[2019-04-21] MEDS: OLANZapine 2.5 MG TABLET PO PRN (04:26)
[2019-04-21] MEDS: 0.9 % SODIUM CHLORIDE 10 ML SYRINGE IV SCH ×2 (05:30→12:19)
--- NOTE | 2019-04-21 10:06 | Discharge Summary ---
Medical - DS: Prov Patient information: Note initiated : 04/21/19 at 10:05 am Service Date, if different from initiated Date: [] Patient: Tristan Miller 74 y/o M admitted on 04/17/19 for abdominal pain. Chief Complaint: [] Date of admission: 04/17/19 17:37 Discharge date: 04/21/19 Primary care physician: Miriam Sanders Consults: 04/17/19 Consult to Physician [CONS] Stat Comment: Consulting Provider: Jyotsna Sanz Reason For Exam: Physician to Consult Medical - DS: Meds - Discharge Medications Prescriptions: OLANZapine [Zyprexa] 2.5 mg PO Q8HP PRN #30 tab PRN Reason: Agitation Transmission Status: Received by [facility] Active and Home Medications: Home Medications Aspirin [Arab Aspirin EC] 81 mg PO QAM 03/22/19 [History Confirmed 04/17/19 Last Taken Unknown] Celecoxib [Celebrex] 200 mg PO DAILY 03/22/19 [History Confirmed 04/17/19 Last Taken Unknown] Divalproex Sodium [Depakote ER] 250 mg PO BID 03/22/19 [History Confirmed 04/17/19 Last Taken Unknown] Gabapentin [Neurontin] 400 mg PO Q8 03/22/19 [History Confirmed 04/17/19 Last Taken Unknown] Isosorbide Mononitrate [Imdur] 30 mg PO DAILY 03/22/19 [History Confirmed 04/17/19 Last Taken Unknown] Losartan Potassium 25 mg PO DAILY 03/22/19 [History Confirmed 04/17/19 Last Taken Unknown] Magnesium Oxide [Magnesium] 400 mg PO DAILY 03/22/19 [History Confirmed 04/17/19 Last Taken Unknown] Methocarbamol [Robaxin] 500 mg PO TID 03/22/19 [History Confirmed 04/17/19 Last Taken Unknown] Misoprostol [Cytotec] 100 mcg PO TIDCC 03/22/19 [History Confirmed 04/17/19 Last Taken Unknown] Niacin [Niaspan] 1,000 mg PO DAILY 03/22/19 [History Confirmed 04/17/19 Last Taken Unknown] amLODIPine [Norvasc] 5 mg PO DAILY 03/22/19 [History Confirmed 04/17/19 Last Ta kathia Unknown] levETIRAcetam [Levetiracetam] 1,000 mg PO BID 03/22/19 [History Confirmed 04/17/19 Last Taken Unknown] Divalproex 250 mg PO BID 04/17/19 [History Confirmed 04/17/19 Last Taken Unknown] LORazepam [Lorazepam] 0.5 - 1 mg PO Q6HP PRN 04/17/19 [History Confirmed 04/18/19 Last Taken Unknown] oxyCODONE HCL [Oxycodone HCl] 5 mg PO PRN PRN 04/17/19 [History Confirmed 04/17/19 Last Taken Unknown] OLANZapine [Zyprexa] 2.5 mg PO Q8HP PRN #30 tab 04/21/19 [Rx Last Taken Unknown] Medical - DS: Hosp Hospital Course: This is a 74-year-old gentleman with a history of dementia with behavioral disturbances admitted with acute encephalopathy and critical hyponatremia of sodium 120. Patient was admitted and started on normal saline which did not improve his sodium and then transition to 3% saline and that improved his sodium he received almost 36 hours of 3% saline and improved sodium to 135. Since then his mental status improved. Patient has underlying dementia with major cognitive impairment and behavioral disturbances. He gets really agitated and he was started on Zyprexa 2.5 every 8 hourly as needed for agitation which controlled his symptoms he was also on lorazepam 0.5 every 8 hourly. Patient would strongly benefit from geriatric psychiatric care. patient was evaluated by case management and physical therapy and social service and recommended discharging back to his facility with continued care. And we will arrange a psychiatric follow-up and primary care follow-up for further management of his symptoms. Patient was on sertraline and trazodone which probably could be worsening his hyponatremia and we stopped that and since then he was getting lorazepam and Zyprexa which seems to be controlling his symptoms better. 04/18- His sodium did not improve overnight and will start him on 3% hypertonic saline. He remained very agitated and encephalopathic and delirious and added Zyprexa in addition to the Haldol. If it is not working then we will try Haldol 5 mg IV. Stopped his sertraline and trazodone because of the hyponatremia and confusion respectively 04/19-his mental status improved his sodium improved to 134 and we stopped hypertonic saline We will use Zyprexa p.o. if he can take p.o. His mental status slightly improved Continue lorazepam 0.5, Zyprexa and Haldol as needed 04/20-IV fluids stopped his sodium remained more than 130, we will discontinue IM Zyprexa and continue with p.o. Zyprexa every 6 hours as needed and lorazepam 0.5 3 times daily as needed. We will have physical therapy evaluate. His ment al status seems to be improved compared to admission his encephalopathy Critical hyponatremia probable SIADH versus [id number] Sodium remains 133 and he received hypertonic saline for 36 hours We will stop his SSRI and SNRI which might be causing hyponatremia Acute encephalopathy and acute delirium improved Underlying dementia with behavioral disturbances His agitation and behavioral changes remains the same We will discontinue Zyprexa IM and will continue with Zyprexa p.o. Discontinue Haldol home lorazepam 0.5 every 8 hourly Continue oxycodone 5 mg home dose Continue Zyprexa 2.5 every 8 hourly at home Patient needs to follow-up with psychiatrist to manage his behavioral disturbances better Chronic anemia Hemoglobin has been around 9 no evidence of acute bleed Chronic back pain Will use his oxycodone home dose We will try to minimize use of narcotics due to agitation and encephalopathy Discharge diagnosis: Critical hyponatremia, acute encephalopathy, dementia with behavioral distu - Time Spent with Patient Total time spent providing and/or coordinating discharge services: Greater than 30 minutes Medical - DS: Exam - Constitutional Vitals: Vital Signs Temp Pulse Resp BP Pulse Ox 04/21/19 08:00 98.4 F 65 16 127/60 93 04/21/19 05:45 96 04/21/19 04:20 98.4 F 73 16 140/74 90 04/20/19 23:50 98.8 F 67 14 124/62 96 04/20/19 20:28 99.4 F H 65 16 150/64 97 04/20/19 16:00 99.0 F 78 20 100/65 98 04/20/19 12:00 97.8 F 61 18 128/62 99 Intake and Output 04/20/19 04/21/19 04/21/19 21:59 05:59 13:59 Intake Total 600 525 Output Total 3 2 Balance 597 523 Intake: Oral 600 525 Output: # of times incontinent of urine 3 2 Other: Meal Lunch Percent of Meal Consumed 75% Feeding Ability Assist with Tray Set Up # of times incontinent of 1 1 Bowels Weight 126 lb General appearance: disheveled, thin - Head Head exam: Present: atraumatic, normal inspection - Eye Eye exam: Present: normal appearance. Absent: nystagmus, periorbital swelling, periorbital tenderness - ENT ENT exam: Present: mucous membranes moist, normal oropharynx - Neck Neck exam: Present: normal inspection. Absent: lymphadenopathy, meningismus - Respiratory Respiratory exam: Present: decreased breath sounds. Absent: accessory muscle use, chest wall tenderness, respiratory distress - Cardiovascular Cardiovascular exam: Absent: bradycardia, diastolic murmur, gallop - GI/Abdominal GI/Abdominal exam: Present: normal bowel sounds, soft. Absent: bruit, distended - Neurological Exam Neurological exam: Present: alert, reflexes normal. Absent: motor sensory deficit Medical - DS: A/P - Patient/Caregiver Discharge Instructions Activity: increase activity as tolerated Diet: Regular Diet Prescriptions: OLANZapine [Zyprexa] 2.5 mg PO Q8HP PRN #30 tab PRN Reason: Agitation Transmission Status: Received by [facility] - Follow up Plan Follow up with: Miriam Sanders MD [Primary Care Provider] - 05/03/19 1:00 pm (This appointment is with Haris Davison.) Disposition: Xfer SNF Care Plan Goals: This discharge packet is provided to you to help keep you informed about your care. We want to ensure you get everything you need when you go home. You will also be receiving a call from us in a few days to follow up with you and see how you are doing since your discharge. This gives us a chance to listen to any concerns you maybe experiencing since you were discharged or any additional needs you may have, as well as providing us feedback on your care experience. We strive to always provide excellent care and thank you for your feedback and for choosing [facility]. Prognosis: Fair Rehab Potential: Fair Overall status at discharge: patient is progressing back to baseline
[2019-04-21] MEDS: DIVALPROEX SODIUM 250 MG TABLET PO SCH (10:10)
[2019-04-21] MEDS: HEPARIN 5,000 UNIT/ML VIAL SQ SCH (10:10)
[2019-04-21] MEDS: levETIRAcetam 500 MG TABLET PO SCH (10:10)
[2019-04-21] MEDS: LORazepam 0.5 MG TABLET PO PRN (10:10)
[2019-04-21] MEDS: oxyCODONE HCL 5 MG TABLET PO PRN (10:10)
== END 2019-04-21 13:05 | DRG 643 ==
LOC: ED 12:21 → MEDSUR 17:37
PROVIDERS: ADMIT Internal Medicine; ATTEND Internal Medicine

== ENCOUNTER 2019-08-27 19:47 | Inpatient (IN) ==
--- NOTE | 2019-08-27 20:58 | Emergency Department Note ---
Lower Extremity Injury HPI - General Chief Complaint: Extremity Injury, Lower Stated Complaint: lower extremity pain Time Seen by Provider: 08/27/19 19:58 Source: EMS Mode of arrival: EMS Limitations: no limitations - History of Present Illness HPI Narrative: This patient has dementia and lives at [facility] and does not have a history of a fall recently but he does have a left hip fracture. He was complaining of left groin pain. - Related Data Home Medications Medication Instructions Recorded Confirmed Aspirin [[place] Aspirin EC] 81 mg PO QAM 03/22/19 08/27/19 Celecoxib [Celebrex] 200 mg PO DAILY 03/22/19 08/27/19 Divalproex Sodium [Depakote ER] 250 mg PO BID 03/22/19 08/27/19 Gabapentin [Neurontin] 400 mg PO Q8 03/22/19 08/27/19 Isosorbide Mononitrate [Imdur] 30 mg PO DAILY 03/22/19 04/17/19 Losartan Potassium 25 mg PO DAILY 03/22/19 08/27/19 Magnesium Oxide [Magnesium] 400 mg PO DAILY 03/22/19 08/27/19 Methocarbamol [Robaxin] 500 mg PO TID 03/22/19 04/17/19 Misoprostol [Cytotec] 100 mcg PO TIDCC 03/22/19 08/27/19 Niacin [Niaspan] 1,000 mg PO DAILY 03/22/19 04/17/19 levETIRAcetam [Levetiracetam] 1,000 mg PO BID 03/22/19 08/27/19 Divalproex 250 mg PO BID 04/17/19 04/17/19 LORazepam [Lorazepam] 0.5 - 1 mg PO Q6HP PRN 04/17/19 08/27/19 oxyCODONE HCL [Oxycodone HCl] 5 mg PO PRN PRN 04/17/19 08/27/19 Previous Rx's Medication Instructions Recorded OLANZapine [Zyprexa] 2.5 mg PO Q8HP PRN #30 tab 04/21/19 Allergies Allergy/AdvReac Type Severity Reaction Status Date / Time amitriptyline Allergy Severe Swelling Verified 06/21/19 10:15 tamsulosin [From Flomax] Allergy Mild Hives Verified 06/21/19 10:15 trazodone Allergy Mild Hives Verified 06/21/19 10:15 Review of Systems Limitations: ROS unobtainable due to patients medical condition Past Medical History - Past Medical History [facility] Narrative: Medical History Hypertension (Acute) Arthralgia of hip (Chronic) Back Pain (Chronic) Loss of appetite (Chronic) Wheezing (Chronic) Irritable bowel syndrome (Chronic) Hypertension, essential (Chronic) Sliding hiatal hernia (Chronic) Flatulence, eructation and gas pain (Chronic) Epigastric pain (Chronic) Enlarged prostate (Chronic) Depression (Chronic) Cough (Chronic) Chronic pain (Chronic) Bloating (Chronic) Anxiety attack (Chronic) Anemia (Chronic) Abdominal pain (Acute) Duodenitis (Resolved) Meningitis (Resolved) Past Surgical History History of laminectomy (Chronic 06/18/16) History of back surgery (Resolved) History of colonoscopy (Resolved 03/02/13) History of esophagogastroduodenoscopy (Resolved 11/22/13) Family History Brother Family history of malignant neoplasm Sister Malignant neoplasm of both lungs Medical history: Reports: other (Arthralgias of the hip, chronic back pain, hypertension, hiatal hernia, bph, depression) - Social History smoking status: Former smoker Alcohol use: Reports: Heavy (-4 drinks a day or more) Drug use: Reports: none Physical Exam Limitations: altered mental status General appearance: alert Head: atraumatic, normocephalic Eye: Present: normal appearance ENT: Present: normal exam Neck: Present: normal inspection Chest: Present: normal inspection Respiratory: Present: normal lung sounds bilaterally Cardiovascular: Present: regular rate, normal rhythm, normal heart sounds Abdominal: Present: soft. Absent: distention, tenderness Neurological: Present: alert Psychiatric: Present: normal affect Skin: Present: warm, dry Course Vital Signs Temperature 98.6 F 08/27/19 19:50 Pulse Rate 74 08/27/19 19:50 Respiratory Rate 17 08/27/19 19:50 Blood Pressure 162/88 08/27/19 19:50 Pulse Oximetry (%) 99 08/27/19 19:50 Temperature 98.6 F 08/27/19 19:50 Pulse Rate 69 08/27/19 20:57 Respiratory Rate 17 08/27/19 19:50 Blood Pressure 157/80 08/27/19 20:57 Pulse Oximetry (%) 98 08/27/19 20:57 Extremity Injury, Lower - MDM Narrative Medical decision making narrative: X-ray shows left femoral neck fracture. I discussed the case with Dr. Oreilly and the hospitalist and he will be admitted to the hospital. - Radiology Data Radiology results reviewed: Yes I reviewed the patient's radiology results. Disposition Pt seen by [facility]/PA only: No Clinical Impression: Fracture of hip Disposition: Xfer As Inpt ([facility]) Condition: Good Referrals: Miriam Sanders MD [Primary Care Provider] - Time of Disposition: 21:09
[2019-08-27] MEDS ORDERED: HYDROmorphone 2 MG TABLET PO PRN (21:30)
[2019-08-27] MEDS ORDERED: PROCHLORPERAZINE 10 MG/2 ML VIAL IV PRN (21:30)
[2019-08-27] MEDS ORDERED: ACETAMINOPHEN 325 MG TABLET PO PRN (21:30)
[2019-08-27] MEDS ORDERED: 0.9 % SODIUM CHLORIDE 1,000 ML IV SCH (21:30)
[2019-08-27] MEDS ORDERED: LORazepam 0.5 MG TABLET PO PRN (21:37)
[2019-08-27] MEDS ORDERED: OLANZapine 2.5 MG TABLET PO PRN (21:37)
[2019-08-27] MEDS ORDERED: ONDANSETRON 4 MG/2 ML VIAL IV PRN (21:42)
--- NOTE | 2019-08-27 21:50 | Internal Med History&Physical ---
Medical - H&P: [facility] Patient information: Note initiated : 08/27/19 at 9:45 pm Service Date, if different from initiated Date: [] Patient: Tristan Miller 74 y/o M admitted on for Lower Extremity Pain. Chief Complaint: [Left hip fracture] History of present illness: Mr. Miller is a 74 year old M with a history of high blood pressure and dementia who was brought to the ER due to left hip fracture. Patient is demented and all information is obtained from his chart. Patient lives at [facility]. He has left groin pain and was found to have left hip fracture. He does not have any history of fall. In the ER, xray confirmed left hip fracture. Orthopedics Dr. Oreilly was consulted, who will probably do a procedure for him tomorrow. Review of systems: Unable to obtain due to dementia Medical - H&P: H Medical history: Hypertension Family history: reviewed and not pertinent (unable to complete due to dementia) Medical - H&P: Meds Home Medications Medication Instructions Recorded Confirmed Type Aspirin [[place] Aspirin EC] 81 mg PO QAM 03/22/19 08/27/19 History Celecoxib [Celebrex] 200 mg PO DAILY 03/22/19 08/27/19 History Divalproex Sodium [Depakote ER] 250 mg PO BID 03/22/19 08/27/19 History Gabapentin [Neurontin] 400 mg PO Q8 03/22/19 08/27/19 History Losartan Potassium 25 mg PO DAILY 03/22/19 08/27/19 History Magnesium Oxide [Magnesium] 400 mg PO DAILY 03/22/19 08/27/19 History Misoprostol [Cytotec] 100 mcg PO TIDCC 03/22/19 08/27/19 History levETIRAcetam [Levetiracetam] 1,000 mg PO BID 03/22/19 08/27/19 History LORazepam [Lorazepam] 0.5 - 1 mg PO Q6HP PRN 04/17/19 08/27/19 History oxyCODONE HCL [Oxycodone HCl] 5 mg PO PRN PRN 04/17/19 08/27/19 History OLANZapine [Zyprexa] 2.5 mg PO Q8HP PRN #30 tab 04/21/19 08/27/19 Rx Budesonide 1 unit INH BID 08/27/19 08/27/19 History Mirtazapine [Remeron] 15 mg PO HS 08/27/19 08/27/19 History traZODone HCL 50 mg HS 08/27/19 08/27/19 History Allergies Allergy/AdvReac Type Severity Reaction Status Date / Time amitriptyline Allergy Severe Swelling Verified 06/21/19 10:15 tamsulosin [From Flomax] Allergy Mild Hives Verified 06/21/19 10:15 trazodone Allergy Mild Hives Verified 06/21/19 10:15 Medical - H&P: Exam - Constitutional Vitals: Temp Pulse Resp BP Pulse Ox 98.6 F 66 17 127/58 98 08/27/19 19:50 08/27/19 21:31 08/27/19 19:50 08/27/19 21:31 08/27/19 21:31 - Other Additional findings: General - No acute distress Eyes -normal conjunctivae ENT no rhinorrhea, no noticeable or palpable swelling, no redness or rash around throat or on face Neck supple, no JVD, no thyromegaly Respiratory: Lungs -clear, no wheezing or crackles. Cardiovascular - RRR no m/r/g, GI - Normal bowel sounds, no distended, soft. Extremeties - No edema, cyanosis or clubbing Hemo/lymphatic/immune no lymphadenopathy Neurological Alert. Psychiatry flat affect Medical - H&P: Reslt - Labs CBC & Chem 7: 08/27/19 21:08 08/27/19 21:08 Medical - H&P: A/P - Narrative A/P Narrative: Assessment: 1. Hip fracture, left 2. Demantia 3. HTN 4. Psychosis 5. Anxiety disorder Plan: 1. History showed left hip fracture Orthopedics Dr. Oreilly was consulted, who will probably do a procedure for him tomorrow His Revised Cardiac Risk Index for Pre-Operative Risk is low. But I do not know much about his past medical history. NPO IVF pain management including iv dilaudid PT 2. Continue home losartan for BP 3. Continue home meds including olanzapine, keppra, mirtazapine, and depakote 4. Continue ativan 0.5-1mg Q6HP for anxiety. His home meds also include trazodone 50mg HS. I decreased it to 25mg HS. continue pulse ox and oxygen 5. DVT prophylaxis: No pharmacological DVT prophylaxis due to possible procedure tomorrow 6. CODE STATUS: Need to discuss with family but can not reach family. will try again tomorrow.
[2019-08-27] MEDS ORDERED: GABAPENTIN 400 MG CAPSULE PO SCH (22:00)
[2019-08-27] MEDS ORDERED: 0.9 % SODIUM CHLORIDE 10 ML SYRINGE IV SCH (22:00)
[2019-08-27 22:16] LABS: Basophils # (Auto) 0.01 K/mcL (0.00-0.30); Basophils % (Auto) 0.1 % (0.0-2.0); Eosinophils % (Auto) 1.4 % (0.0-7.0); Granulocytes % (Auto) 73.4 % (38.0-78.0); Hematocrit 31.8 % (40.1-51.0); Hemoglobin 10.4 g/dL (13.7-17.5); Lymphocytes # (Auto) 1.15 K/mcL (1.50-4.80); Lymphocytes % (Auto) 16.4 % (15.5-49.0); Mean Cell Volume 95.8 fL (80.0-100.0); Mean Corpuscular HGB Conc 32.7 g/dL (31.0-36.0); Mean Platelet Volume 9.8 fL (7.4-10.4); Monocytes # (Auto) 0.61 K/mcL (0.10-0.90); Monocytes % (Auto) 8.7 % (1.0-12.0); Platelet Count 319 K/mcL (140-440); RBC 3.32 M/mcL (4.63-6.08); Red Cell Distribution Width 14.5 % (11.5-14.5)
[2019-08-27 22:27] LABS: Prothrombin Time 13.3 sec (11.9-14.5)
[2019-08-27 22:38] LABS: ALT/SGPT 5 U/l (0-40); AST/SGOT 17 U/l (0-37); Albumin 3.8 gm/dL (3.2-5.2); Albumin/Globulin Ratio 1.1 (1.0-2.3); Alkaline Phosphatase 121 U/L (39-117); Bilirubin,Total 0.2 mg/dL (0.0-1.0); Blood Urea Nitrogen 12 mg/dl (8-23); Calcium 9.2 mg/dl (8.6-10.4); Carbon Dioxide 27 mmol/L (22-30); Globulin 3.5 gm/dL (2.2-3.7); Glomerular Filtration Rate 83; Glucose 122 mg/dL (70-105)
[2019-08-27 22:39] LABS: Chloride 95 mmol/L (96-108)
[2019-08-28] MEDS: 0.9 % SODIUM CHLORIDE 1,000 ML IV SCH ×3 (00:24→20:12)
[2019-08-28 01:39] LABS: Appearance,Urine CLEAR; Bilirubin,Urine NEG (NEG); Color,Urine STRAW; Culture Indicated,Urine NO; Glucose,Urine (UA) NEGATIVE (NEG); Ketones,Urine NEG (NEG); Leukocyte Esterase,Urine NEG /uL (NEG); Nitrate,Urine NEG (NEG); Protein,Urine NEG (NEG); Specific Gravity,Urine 1.012 (1.000-1.035); Urine Blood NEG mg/dL (<0.03); Urobilinogen,Urine NEG (NEG)
--- NOTE | 2019-08-28 06:27 | Cat Scan Report ---
INDICATION: observe bilateral hips injury. Hip pain. TECHNIQUE: Axial images through the pelvis and hips. Sagittal and coronal reformatted images COMPARISON: Plain film examination dated 08/27/2019 FINDINGS: Findings consistent with osteopenia or osteoporosis. Sacrum: Previous lumbosacral spinal fusion. There are pedicle and vertebral body screws at L5 and S1. No sacral fracture. Sacroiliac joints are negative. No ankylosis. Pelvis: Negative. No pelvic fracture. Iliac and pubic bones are negative. No lytic lesion. Left hip: Mildly comminuted transcervical left femoral neck fracture. There is mild dorsal angulation and impaction. Right hip: Comminuted right greater trochanteric fracture. Right femoral head and neck are intact. There is a band of sclerosis in the intertrochanteric region but cortex appears intact without discrete fracture line. Soft tissues: No intrapelvic hematoma. No significant periarticular hematoma Examination was initially interpreted by [facility] IMPRESSION: 1. Mildly comminuted left transcervical femoral neck fracture 2. Comminuted right greater trochanteric fracture. There is sclerosis in the right intratrochanteric region but overlying cortex remains intact Interpreted and Authenticated by: Franc Andres 08/28/19
--- NOTE | 2019-08-28 06:36 | XRay Report ---
INDICATION: pre surgery. Hip fractures TECHNIQUE: AP portable semiupright chest x-ray COMPARISON: Previous chest x-rays dated 06/21/2019, 03/21/2016, 12/06/2014 FINDINGS: Lungs:Linear densities in both lungs are unchanged since 06/21/2019. Findings are consistent with mild parenchymal scarring or subsegmental atelectasis. No parenchymal consolidation. No acute infiltrate. No focal parenchymal mass Heart, vascular:No significant cardiomegaly. Pulmonary vascularity is normal. No pulmonary edema or pulmonary congestion Mediastinum, pako:No mediastinal widening. No hilar mass Pleura:No pleural fluid. No pleural-based mass or calcification Skeletal:Nonacute right seventh and eighth rib fractures. No acute abnormality IMPRESSION: No acute abnormality. No interval change since 06/21/2019 Interpreted and Authenticated by: Franc Andres 08/28/19
--- NOTE | 2019-08-28 06:38 | XRay Report ---
INDICATION: Left groin pain TECHNIQUE: AP pelvis. AP and lateral left hip COMPARISON: Previous pelvis and bilateral hips dated 07/26/2015 FINDINGS: Previous lumbosacral spinal fusion. Appears osteopenic or osteoporotic. No detectable pelvic or sacral fracture. Transcervical left femoral neck fracture with mild impaction and slight varus angulation. Fracture of the right greater trochanter. Right femoral neck appears intact. IMPRESSION: 1. Left femoral neck fracture 2. Right greater trochanteric fracture Interpreted and Authenticated by: Franc Andres 08/28/19
[2019-08-28] MEDS: GABAPENTIN 400 MG CAPSULE PO SCH ×3 (06:51→23:02)
[2019-08-28] MEDS: 0.9 % SODIUM CHLORIDE 10 ML SYRINGE IV SCH ×2 (06:51→14:19)
[2019-08-28 06:55] LABS: Basophils # (Auto) 0.02 K/mcL (0.00-0.30); Basophils % (Auto) 0.3 % (0.0-2.0); Eosinophils # (Auto) 0.15 K/mcL (0.00-0.70); Eosinophils % (Auto) 2.5 % (0.0-7.0); Granulocytes % (Auto) 62.8 % (38.0-78.0); Hematocrit 29.6 % (40.1-51.0); Hemoglobin 9.8 g/dL (13.7-17.5); Lymphocytes # (Auto) 1.49 K/mcL (1.50-4.80); Lymphocytes % (Auto) 25.1 % (15.5-49.0); Mean Cell Volume 95.2 fL (80.0-100.0); Mean Corpuscular HGB Conc 33.1 g/dL (31.0-36.0); Mean Platelet Volume 10.2 fL (7.4-10.4); Monocytes # (Auto) 0.55 K/mcL (0.10-0.90); Monocytes % (Auto) 9.3 % (1.0-12.0); Platelet Count 320 K/mcL (140-440); RBC 3.11 M/mcL (4.63-6.08); Red Cell Distribution Width 14.6 % (11.5-14.5); WBC 5.9 K/mcL (4.50-11.00)
[2019-08-28] MEDS ORDERED: SCOPOLAMINE 1 PATCH PATCH TOPICAL PRN (07:00)
[2019-08-28] MEDS ORDERED: IPRATROPIUM/ALBUTEROL 3 ML AMPUL.NEB NEB PRN ×3 (07:00→19:53)
[2019-08-28 07:18] LABS: Chloride 100 mmol/L (96-108)
[2019-08-28 07:21] LABS: ALT/SGPT < 5 U/l (0-40); AST/SGOT 17 U/l (0-37); Albumin 3.2 gm/dL (3.2-5.2); Alkaline Phosphatase 104 U/L (39-117); Bilirubin,Total 0.2 mg/dL (0.0-1.0); Blood Urea Nitrogen 10 mg/dl (8-23); Carbon Dioxide 24 mmol/L (22-30); Globulin 3.1 gm/dL (2.2-3.7); Glomerular Filtration Rate 92; Glucose 92 mg/dL (70-105)
[2019-08-28] MEDS ORDERED: PANTOPRAZOLE 40 MG TABLET PO SCH ×2 (07:30)
[2019-08-28] MEDS ORDERED: LEVETIRACETAM 1000 MG PO SCH (09:00)
[2019-08-28] MEDS ORDERED: DOCUSATE SODIUM 100 MG CAPSULE PO SCH ×4 (09:00→21:00)
[2019-08-28] MEDS ORDERED: levETIRAcetam 500 MG TABLET PO SCH (09:00)
[2019-08-28] MEDS ORDERED: BUDESONIDE INH SCH (09:00)
[2019-08-28] MEDS ORDERED: LOSARTAN 25 MG TABLET PO SCH ×2 (09:00)
[2019-08-28] MEDS ORDERED: DIVALPROEX SODIUM 250 MG TABLET PO SCH ×2 (09:00)
[2019-08-28] MEDS ORDERED: BUDESONIDE 1 PUFF INHALER INH SCH (09:00)
--- NOTE | 2019-08-28 11:14 | Internal Med Progress Note ---
Medical - PN: Subj Patient information: Note initiated : 08/28/19 at 11:01 am Service Date, if different from initiated Date: [] Patient: Tristan Miller 74 y/o M admitted on 08/27/19 for Lower Extremity Pain. Chief Complaint: [] Interval history: Mr. Miller is a 74 year old M with a history of high blood pressure and dementia who was brought to the ER due to left hip fracture. Patient is demented and all information is obtained from his chart. Patient lives at [facility]. He has left groin pain and was found to have left hip fracture. He does not have any history of fall. In the ER, xray confirmed left hip fracture. Orthopedics Dr. Oreilly was consulted, who will probably do a procedure for him tomorrow. 08/27 Pt does not have new complaints. BP is not controlled. Otherwise vital signs are fine. He will probably have a procedure for his fracture. Review of systems: Unable to obtain due to dementia - Constitutional Vitals: Vital Signs Temp Pulse Resp BP Pulse Ox 98.6 F 65 20 170/79 98 08/28/19 07:26 08/28/19 03:07 08/28/19 07:26 08/28/19 07:26 08/28/19 07:26 Period Temp Pulse Resp BP Sys/King Pulse Ox Last 24 Hr 98 F-98.6 F 65-74 16-20 125-170/58-88 95-99 Intake and Output 08/27/19 08/28/19 08/28/19 21:59 05:59 13:59 Intake Total 0 Output Total 702 Balance -702 Weight 72.575 kg 72.575 kg Intake & Output: Intake & Output 08/27/19 08/28/19 08/28/19 21:59 05:59 13:59 Intake Total 0 Output Total 702 Balance -702 Weight 72.575 kg 72.575 kg Intake: Oral 0 Output: Urine Catheter Amount 700 # of times incontinent of urine 2 Other: Urine Appearance Clear Urine Color Pale Urine Odor Normal - Additional findings Additional findings: General - No acute distress Eyes -normal conjunctivae ENT no rhinorrhea, no noticeable or palpable swelling, no redness or rash around throat or on face Neck supple, no JVD, no thyromegaly Respiratory: Lungs -clear, no wheezing or crackles. Cardiovascular - RRR no m/r/g, GI - Normal bowel sounds, no distended, soft. Extremeties - No edema, cyanosis or clubbing Hemo/lymphatic/immune no lymphadenopathy Neurological Alert. Psychiatry flat affect Medical - PN: Obj Da - Labs CBC & Chem 7: 08/28/19 05:12 08/28/19 05:12 Labs: Abnormal Lab Results 08/28/19 08/27/19 08/27/19 05:12 21:08 21:08 RBC 3.11 L 3.32 L Hgb 9.8 L 10.4 L Hct 29.6 L 31.8 L RDW 14.6 H Lymph # (Auto) 1.49 L 1.15 L Sodium 132 L Chloride 95 L Glucose 122 H Alkaline Phosphatase 121 H Meds: Medications Acetaminophen (Tylenol) 325 mg PO Q6HP PRN; Protocol PRN Reason: Per Pain Protocol/Fever > 101 Albuterol/Ipratropium (Duoneb) 3 ml NEB ONCE PRN PRN Reason: Shortness Of Breath Stop: 08/28/19 15:00 Budesonide (Pulmicort) 1 puff INH BID [facility] Divalproex Sodium (Depakote Er) 250 mg PO BID [facility] Docusate Sodium (Colace) 100 mg PO BID [facility] Gabapentin (Neurontin) 400 mg PO Q8 [facility] Last Admin: 08/28/19 06:51 Dose: Not Given Documented by: Hydromorphone HCl (Dilaudid) 0.5 mg PO Q4HP PRN; Protocol PRN Reason: Per Pain Protocol Sodium Chloride (Sodium Chloride 0.9%) 1,000 mls @ 75 mls/hr IV .[id number] [facility] Last Admin: 08/28/19 00:24 Dose: 75 mls/hr Documented by: Levetiracetam (Keppra) 1,000 mg PO BID [facility] Lorazepam (Ativan) 0.5 - 1 mg PO Q6HP PRN PRN Reason: Agitation Losartan Potassium (Cozaar) 25 mg PO DAILY [facility] Mirtazapine (Remeron) 15 mg PO HS [facility] Olanzapine (Zyprexa) 2.5 mg PO Q8HP PRN PRN Reason: Agitation Ondansetron HCl (Zofran) 4 mg IV Q6HP PRN PRN Reason: Nausea And Vomiting Pantoprazole Sodium (Protonix) 40 mg PO QAMAC [facility] Scopolamine (Transderm-Scop) 1 patch TOPICAL PREOP PRN PRN Reason: Nausea And Vomiting Stop: 08/28/19 15:00 Senna (Senokot) 2 tab PO [facility] Sodium Chloride (Saline Flush) 10 ml IV Q8 [facility] Last Admin: 08/28/19 06:51 Dose: Not Given Documented by: Trazodone HCl (Desyrel) 25 mg PO HS [facility] Medical - PN: A/P - Time Spent With Patient Total time spent is greater than 50% in coordination of care (as documented) at patient's floor/unit and/or counseling patient: - Narrative A/P Narrative: Assessment: 1. Hip fracture, left 2. Demantia 3. HTN 4. Psychosis 5. Anxiety disorder Plan: 1. History showed left hip fracture Orthopedics Dr. Oreilly was consulted, who will probably do a procedure for him today His Revised Cardiac Risk Index for Pre-Operative Risk is low. But I do not know much about his past medical history. NPO IVF pain management including iv dilaudid PT 2. Continue home losartan for BP 3. Continue home meds including olanzapine, keppra, mirtazapine, and depakote 4. Continue ativan 0.5-1mg Q6HP for anxiety. His home meds also include trazodone 50mg HS. I decreased it to 25mg HS. continue pulse ox and oxygen 5. DVT prophylaxis: No pharmacological DVT prophylaxis due to possible procedure tomorrow 6. CODE STATUS: Need to discuss with family but can not reach family. will try again tomorrow. Medical - PN: Qual - Stroke Symptom Onset Unknown: No - VTE Deep Vein Thrombosis/Pulmonary Embolism Present on Admission: No
[2019-08-28] MEDS ORDERED: DEXAMETHASONE 10 MG/ML VIAL IV ONE (17:45)
[2019-08-28] MEDS ORDERED: KETAMINE 100 MG/ML ML IV ONE (17:45)
[2019-08-28] MEDS ORDERED: LIDOCAINE HCL/PF 100 MG/5 ML SYRINGE IV ONE (17:45)
[2019-08-28] MEDS ORDERED: PROPOFOL 200 MG/20 ML VIAL IV ONE (17:45)
[2019-08-28] MEDS ORDERED: HYDROmorphone* 2 MG/ML VIAL IV ONE (17:45)
[2019-08-28] MEDS ORDERED: SUGAMMADEX SODIUM 200 MG/2 ML VIAL IV ONE (17:45)
[2019-08-28] MEDS ORDERED: GLYCOPYRROLATE 0.2 MG/ML VIAL IV ONE (17:45)
[2019-08-28] MEDS ORDERED: ONDANSETRON 4 MG/2 ML VIAL IV ONE (17:45)
[2019-08-28] MEDS ORDERED: PHENYLEPHRINE 10 MG/ML VIAL IV ONE (17:45)
[2019-08-28] MEDS ORDERED: ROCURONIUM 10 MG/ML ML IV ONE (17:45)
[2019-08-28] MEDS ORDERED: LACTATED RINGERS 250 ML IV PRN ×2 (18:36→19:53)
[2019-08-28] MEDS ORDERED: METHOCARBAMOL 1,000 MG/10 ML VIAL IV PRN ×2 (18:36→19:53)
[2019-08-28] MEDS ORDERED: METOPROLOL TARTRATE 5 MG/5 ML VIAL IV PRN (18:36)
[2019-08-28] MEDS ORDERED: fentaNYL 100 MCG/2 ML VIAL IV PRN (18:36)
[2019-08-28] MEDS ORDERED: BENZOCAINE/MENTHOL 1 LOZENGE PO PRN ×4 (18:36→19:53)
[2019-08-28] MEDS ORDERED: ACETAMINOPHEN 1,000 MG/100 ML BOTTLE IV ONE ×2 (18:36→19:53)
[2019-08-28] MEDS ORDERED: FLUMAZENIL 0.1 MG/ML ML IV PRN ×2 (18:36→19:53)
[2019-08-28] MEDS ORDERED: LABETALOL 5 MG/ML ML IV PRN ×2 (18:36→19:53)
[2019-08-28] MEDS ORDERED: NALOXONE HCL 0.4 MG/ML VIAL IV PRN ×2 (18:36→19:53)
[2019-08-28] MEDS ORDERED: GENTAMICIN SULFATE 800 MG/20 ML VIAL IR ONE (18:38)
[2019-08-28] MEDS ORDERED: LACTATED RINGERS 1,000 ML IV SCH ×2 (18:45→19:53)
--- NOTE | 2019-08-28 18:52 | Brief Operative Note ---
Date of procedure: 08/28/19 Pre-op diagnosis: left hip femoral neck fracture Post-op diagnosis: same Procedure: left hip hemiarthroplasty Grafts/Implants: Yes Anesthesia: GETA Complications: none Surgeon: Franc Oreilly X Ray Technologist: Charles Soares Estimated blood loss (cc): 150 Specimens Removed/Pathology: none sent Condition: stable Disposition: PACU
[2019-08-28] MEDS ORDERED: ONDANSETRON 4 MG ODT TABLET SL PRN ×2 (18:53→19:53)
[2019-08-28] MEDS ORDERED: HYDROcodone/APAP 10/325MG TABLET PO PRN (18:53)
[2019-08-28] MEDS ORDERED: MAGNESIUM HYDROXIDE 30 ML ORAL.SUSP PO PRN ×2 (18:53→19:53)
[2019-08-28] MEDS ORDERED: BISACODYL 10 MG SUPP.RECT PR PRN ×2 (18:53→19:53)
[2019-08-28] MEDS ORDERED: FLEETS ADULT ENEMA PR PRN ×2 (18:53→19:53)
[2019-08-28] MEDS ORDERED: TRANEXAMIC ACID 1,000 MG/10 ML VIAL IV ONE ×2 (18:53→19:53)
[2019-08-28] MEDS ORDERED: POLYETHYLENE GLYCOL 3350 17 GM PACKET PO PRN ×2 (18:53→19:53)
--- NOTE | 2019-08-28 18:53 | Discharge Summary ---
Ortho Discharge - [facility] - Patient Instructions Diet: Regular Diet Activity: weight bearing as tolerated Total Hip Protocol: Follow activity instructions as provided by Physical Therapy. Dressing Care: May shower in 2 days, Maryel Ag - leave on for 5 days - Follow Up Plan Follow Up Appointments: Miriam Sanders MD [Primary Care Provider] - Disposition: Xfer SNF Prognosis: Good Rehab Potential: Fair I certify that the patient requires SNF services: Yes Overall status at discharge: patient is progressing back to baseline
[2019-08-28] MEDS ORDERED: ceFAZolin 2 GM in DEXTROSE 5% IN WATER 50 ML IV SCH (19:00)
[2019-08-28] MEDS: fentaNYL 100 MCG/2 ML VIAL IV PRN ×3 (19:19→19:23)
[2019-08-28] MEDS ORDERED: fentaNYL 100 MCG/2 ML VIAL IV ONE (19:26)
[2019-08-28] MEDS: METOPROLOL TARTRATE 5 MG/5 ML VIAL IV PRN ×2 (19:35→19:40)
[2019-08-28] MEDS ORDERED: METOPROLOL TARTRATE 5 MG/5 ML VIAL IV ONE (19:37)
--- NOTE | 2019-08-28 19:41 | XRay Report ---
INDICATION: Left hip hemiarthroplasty TECHNIQUE: AP pelvis. AP and cross table lateral left hip COMPARISON: Preoperative evaluation dated 08/27/2019 IMPRESSION: Status post left hip hemiarthroplasty. Alignment is anatomic. Interpreted and Authenticated by: Franc Andres 08/28/19
[2019-08-28] MEDS ORDERED: HYDROmorphone 2 MG TABLET PO PRN ×2 (19:53)
[2019-08-28] MEDS ORDERED: OLANZapine 2.5 MG TABLET PO PRN ×2 (19:53)
[2019-08-28] MEDS ORDERED: LORazepam 0.5 MG TABLET PO PRN ×2 (19:53)
[2019-08-28] MEDS ORDERED: ONDANSETRON 4 MG/2 ML VIAL IV PRN ×2 (19:53)
[2019-08-28] MEDS ORDERED: ACETAMINOPHEN 325 MG TABLET PO PRN ×2 (19:53)
[2019-08-28] MEDS ORDERED: ENOXAPARIN 30 MG/0.3 ML SYRINGE SQ SCH (21:00)
[2019-08-28] MEDS ORDERED: TRAZODONE HCL 25 MG PO SCH (21:00)
[2019-08-28] MEDS ORDERED: traZODone HCL 50 MG TABLET PO SCH (21:00)
[2019-08-28] MEDS ORDERED: MIRTAZAPINE 15 MG TABLET PO SCH ×2 (21:00)
[2019-08-28] MEDS ORDERED: SENNOSIDES 1 TABLET PO SCH ×4 (21:00)
[2019-08-28] MEDS: SENNOSIDES 1 TABLET PO SCH (23:02)
[2019-08-28] MEDS: DIVALPROEX SODIUM 250 MG TABLET PO SCH (23:02)
[2019-08-28] MEDS: MIRTAZAPINE 15 MG TABLET PO SCH (23:02)
[2019-08-28] MEDS: levETIRAcetam 500 MG TABLET PO SCH (23:03)
[2019-08-28] MEDS: DOCUSATE SODIUM 100 MG CAPSULE PO SCH (23:03)
[2019-08-28] MEDS: ENOXAPARIN 30 MG/0.3 ML SYRINGE SQ SCH (23:04)
[2019-08-28] MEDS: traZODone HCL 50 MG TABLET PO SCH (23:04)
[2019-08-29] MEDS: 0.9 % SODIUM CHLORIDE 10 ML SYRINGE IV SCH ×4 (00:16→20:15)
[2019-08-29] MEDS: BUDESONIDE 1 PUFF INHALER INH SCH ×3 (00:16→20:15)
[2019-08-29] MEDS ORDERED: ceFAZolin 2 GM in DEXTROSE 5% IN WATER 50 ML IV SCH (03:00)
[2019-08-29] MEDS: ceFAZolin 1 GM VIAL IV SCH ×2 (03:36→09:02)
[2019-08-29 06:24] LABS: Basophils # (Auto) 0 K/mcL (0.00-0.30); Basophils % (Auto) 0 % (0.0-2.0); Eosinophils # (Auto) 0 K/mcL (0.00-0.70); Eosinophils % (Auto) 0 % (0.0-7.0); Granulocytes % (Auto) 81.2 % (38.0-78.0); Hematocrit 28.3 % (40.1-51.0); Hemoglobin 9.3 g/dL (13.7-17.5); Lymphocytes # (Auto) 0.69 K/mcL (1.50-4.80); Lymphocytes % (Auto) 10.9 % (15.5-49.0); Mean Cell Volume 95.9 fL (80.0-100.0); Mean Corpuscular HGB Conc 32.9 g/dL (31.0-36.0); Mean Platelet Volume 9.8 fL (7.4-10.4); Monocytes % (Auto) 7.9 % (1.0-12.0); Platelet Count 280 K/mcL (140-440); RBC 2.95 M/mcL (4.63-6.08); Red Cell Distribution Width 14.4 % (11.5-14.5); WBC 6.3 K/mcL (4.50-11.00)
[2019-08-29 06:55] LABS: ALT/SGPT 6 U/l (0-40); AST/SGOT 21 U/l (0-37); Albumin 3.2 gm/dL (3.2-5.2); Albumin/Globulin Ratio 1.2 (1.0-2.3); Alkaline Phosphatase 103 U/L (39-117); Bilirubin,Total 0.3 mg/dL (0.0-1.0); Blood Urea Nitrogen 11 mg/dl (8-23); Calcium 8.4 mg/dl (8.6-10.4); Carbon Dioxide 23 mmol/L (22-30); Chloride 101 mmol/L (96-108); Globulin 2.6 gm/dL (2.2-3.7); Glomerular Filtration Rate 92; Glucose 124 mg/dL (70-105)
[2019-08-29] MEDS: PANTOPRAZOLE 40 MG TABLET PO SCH (07:30)
[2019-08-29] MEDS: GABAPENTIN 400 MG CAPSULE PO SCH ×3 (07:30→20:02)
[2019-08-29] MEDS: ENOXAPARIN 30 MG/0.3 ML SYRINGE SQ SCH ×2 (09:02→20:02)
[2019-08-29] MEDS: HYDROcodone/APAP 10/325MG TABLET PO PRN ×3 (09:03→20:03)
[2019-08-29] MEDS: DIVALPROEX SODIUM 250 MG TABLET PO SCH ×2 (09:04→20:02)
[2019-08-29] MEDS: levETIRAcetam 500 MG TABLET PO SCH ×2 (09:04→20:02)
[2019-08-29] MEDS: DOCUSATE SODIUM 100 MG CAPSULE PO SCH ×2 (09:04→20:14)
[2019-08-29] MEDS: LOSARTAN 25 MG TABLET PO SCH (09:05)
--- NOTE | 2019-08-29 12:16 | Internal Med Progress Note ---
Medical - PN: Subj Patient information: Note initiated : 08/29/19 at 11:57 am Service Date, if different from initiated Date: [] Patient: Tristan Miller 74 y/o M admitted on 08/27/19 for Lower Extremity Pain. Chief Complaint: [] Interval history: Mr. Miller is a 74 year old M with a history of high blood pressure and dementia who was brought to the ER due to left hip fracture. Patient is demented and all information is obtained from his chart. [facility] He has left groin pain and was found to have left hip fracture. He does not have any history of fall. In the ER, xray confirmed left hip fracture. Orthopedics Dr. Oreilly was consulted, who will probably do a procedure for him tomorrow. 08/27 Pt does not have new complaints. BP is not controlled. Otherwise vital signs are fine. He will probably have a procedure for his fracture. 08/28 Pt does not have complaints. He is lying in bed, and seems to be comfortable. He underwent left hip hemiarthroplasty by Dr. Oreilly on 08/28/19 T today >=99.0. pulmonary toilet Hb 9.3 today, 10.4 on admission Review of systems: Unable to obtain due to dementia - Constitutional Vitals: Vital Signs Temp Pulse Resp BP Pulse Ox 99.0 F 55 L 12 97/49 95 08/29/19 11:35 08/29/19 03:05 08/29/19 11:35 08/29/19 11:35 08/29/19 11:35 Period Temp Pulse Resp BP Sys/King Pulse Ox Last 24 Hr 97.0 F-99.1 F 54-104 9-20 97-200/49-102 92-100 Intake and Output 08/28/19 08/29/19 08/29/19 21:59 05:59 13:59 Intake Total 1900 Output Total 1125 Balance 775 Weight 61.462 kg Intake & Output: Intake & Output 08/28/19 08/29/19 08/29/19 21:59 05:59 13:59 Intake Total 1900 Output Total 1125 Balance 775 Weight 61.462 kg Intake: IV 100 IV - Manual Only 1800 Output: Urine Catheter Amount 875 Estimated Blood Loss 250 Other: Urine Appearance Clear Clear Urine Color Dark Yellow Dark Yellow Urine Odor Normal Normal - Additional findings Additional findings: General - No acute distress Eyes -normal conjunctivae ENT no rhinorrhea, no noticeable or palpable swelling, no redness or rash around throat or on face Neck supple, no JVD, no thyromegaly Respiratory: Lungs -clear, no wheezing or crackles. Cardiovascular - RRR no m/r/g, GI - Normal bowel sounds, no distended, soft. Extremeties - No edema, cyanosis or clubbing. Dressing dry. Hemo/lymphatic/immune no lymphadenopathy Neurological Alert. Psychiatry flat affect Medical - PN: Obj Da - Labs CBC & Chem 7: 08/29/19 04:36 08/29/19 04:36 Labs: Abnormal Lab Results 08/29/19 08/29/19 08/28/19 04:36 04:36 05:12 RBC 2.95 L 3.11 L Hgb 9.3 L 9.8 L Hct 28.3 L 29.6 L RDW 14.6 H Gran % 81.2 H Lymph % (Auto) 10.9 L Lymph # (Auto) 0.69 L 1.49 L Sodium Chloride Glucose 124 H Calcium 8.4 L Alkaline Phosphatase Total Protein 5.8 L 08/27/19 08/27/19 21:08 21:08 RBC 3.32 L Hgb 10.4 L Hct 31.8 L RDW Gran % Lymph % (Auto) Lymph # (Auto) 1.15 L Sodium 132 L Chloride 95 L Glucose 122 H Calcium Alkaline Phosphatase 121 H Total Protein Meds: Medications Acetaminophen (Tylenol) 325 mg PO Q6HP PRN; Protocol PRN Reason: Per Pain Protocol/Fever > 101 Hydrocodone Bitart/Acetaminophen ([place] 10/325mg) 0 tab PO Q4HP PRN; Protocol PRN Reason: Per Pain Protocol Last Admin: 08/29/19 09:03 Dose: 2 tab Documented by: Bisacodyl (Dulcolax) 10 mg IN Q2-3DAYS PRN PRN Reason: Constipation Budesonide (Pulmicort) 1 puff INH BID [facility] Last Admin: 08/29/19 00:16 Dose: Not Given Documented by: Divalproex Sodium (Depakote Er) 250 mg PO BID [facility] Last Admin: 08/29/19 09:04 Dose: 250 mg Documented by: Docusate Sodium (Colace) 100 mg PO BID [facility] Last Admin: 08/29/19 09:04 Dose: 100 mg Documented by: Enoxaparin Sodium (Lovenox) 30 mg SQ BID [facility] Last Admin: 08/29/19 09:02 Dose: 30 mg Documented by: Gabapentin (Neurontin) 400 mg PO Q8 [facility] Last Admin: 08/29/19 07:30 Dose: 400 mg Documented by: Hydromorphone HCl (Dilaudid) 0.5 mg PO Q4HP PRN; Protocol PRN Reason: Per Pain Protocol Sodium Chloride (Sodium Chloride 0.9%) 1,000 mls @ 75 mls/hr IV .[id number] [facility] Last Admin: 08/28/19 20:12 Dose: 75 mls/hr Documented by: Levetiracetam (Keppra) 1,000 mg PO BID [facility] Last Admin: 08/29/19 09:04 Dose: 1,000 mg Documented by: Lorazepam (Ativan) 0.5 - 1 mg PO Q6HP PRN PRN Reason: Agitation Last Admin: 08/28/19 23:03 Dose: 0.5 mg Documented by: Losartan Potassium (Cozaar) 25 mg PO DAILY [facility] Last Admin: 08/29/19 09:05 Dose: 25 mg Documented by: Magnesium Hydroxide (Milk Of Magnesia) 30 ml PO BIDP PRN PRN Reason: Constipation Mirtazapine (Remeron) 15 mg PO HS [facility] Last Admin: 08/28/19 23:02 Dose: 15 mg Documented by: Morphine Sulfate (Morphine) 0 mg IV Q1HP PRN; Protocol PRN Reason: Per Pain Protocol Last Admin: 08/29/19 00:53 Dose: 2 mg Documented by: Olanzapine (Zyprexa) 2.5 mg PO Q8HP PRN PRN Reason: Agitation Ondansetron HCl (Zofran) 4 mg IV Q6HP PRN PRN Reason: Nausea And Vomiting Ondansetron HCl (Zofran Odt) 4 mg SL Q4HP PRN; Protocol PRN Reason: Nausea And Vomiting Pantoprazole Sodium (Protonix) 40 mg PO QAMAC [facility] Last Admin: 08/29/19 07:30 Dose: 40 mg Documented by: Polyethylene Glycol (Miralax) 17 gm PO DAILYP PRN PRN Reason: Constipation Senna (Senokot) 2 tab PO HS [facility] Last Admin: 08/28/19 23:02 Dose: 2 tab Documented by: Sodium Biphosphate/Sodium Phosphate (Fleets Adult) 1 dose IN Q3-4DAYS PRN PRN Reason: Constipation Sodium Chloride (Saline Flush) 10 ml IV Q8 [facility] Last Admin: 08/29/19 06:10 Dose: Not Given Documented by: Throat Lozenges (Cepacol) 1 lozenge PO PRN PRN PRN Reason: Sore Throat Trazodone HCl (Desyrel) 25 mg PO HS [facility] Last Admin: 08/28/19 23:04 Dose: 25 mg Documented by: Medical - PN: A/P - Time Spent With Patient Total time spent is greater than 50% in coordination of care (as documented) at patient's floor/unit and/or counseling patient: - Narrative A/P Narrative: Assessment: 1. Hip fracture, left 2. Demantia 3. HTN 4. Psychosis 5. Anxiety disorder Plan: 1. History showed left hip fracture He underwent left hip hemiarthroplasty by Dr. Oreilly on 08/28/19 Postop management including DVT prophylaxis and pain control by orth team pain management including iv dilaudid PT 2. Continue home losartan for BP 3. Continue home meds including olanzapine, keppra, mirtazapine, and depakote 4. Continue ativan 0.5-1mg Q6HP for anxiety. His home meds also include trazodone 50mg HS. I decreased it to 25mg HS. continue pulse ox and oxygen 5. DVT prophylaxis: No pharmacological DVT prophylaxis due to possible procedure tomorrow 6. CODE STATUS: Need to discuss with family but can not reach family. will try again tomorrow. Medical - PN: Qual - Stroke Symptom Onset Unknown: No - VTE Deep Vein Thrombosis/Pulmonary Embolism Present on Admission: No
[2019-08-29] MEDS: 0.9 % SODIUM CHLORIDE 1,000 ML IV SCH ×2 (14:47→22:13)
[2019-08-29] MEDS: MIRTAZAPINE 15 MG TABLET PO SCH (20:02)
[2019-08-29] MEDS: SENNOSIDES 1 TABLET PO SCH (20:03)
[2019-08-29] MEDS: traZODone HCL 50 MG TABLET PO SCH (20:03)
[2019-08-30] MEDS: HYDROcodone/APAP 10/325MG TABLET PO PRN ×5 (02:04→20:32)
[2019-08-30] MEDS: 0.9 % SODIUM CHLORIDE 10 ML SYRINGE IV SCH ×3 (05:51→20:33)
[2019-08-30] MEDS: GABAPENTIN 400 MG CAPSULE PO SCH ×3 (05:51→20:31)
[2019-08-30 06:21] LABS: Basophils # (Auto) 0.02 K/mcL (0.00-0.30); Basophils % (Auto) 0.3 % (0.0-2.0); Eosinophils # (Auto) 0.13 K/mcL (0.00-0.70); Granulocytes % (Auto) 64.5 % (38.0-78.0); Hematocrit 26.6 % (40.1-51.0); Hemoglobin 8.6 g/dL (13.7-17.5); Lymphocytes # (Auto) 1.47 K/mcL (1.50-4.80); Mean Cell Volume 96.7 fL (80.0-100.0); Mean Corpuscular HGB Conc 32.3 g/dL (31.0-36.0); Mean Platelet Volume 9.6 fL (7.4-10.4); Monocytes # (Auto) 0.65 K/mcL (0.10-0.90); Monocytes % (Auto) 10.2 % (1.0-12.0); Platelet Count 250 K/mcL (140-440); RBC 2.75 M/mcL (4.63-6.08); Red Cell Distribution Width 14.9 % (11.5-14.5); WBC 6.4 K/mcL (4.50-11.00)
[2019-08-30 06:43] LABS: ALT/SGPT < 5 U/l (0-40); AST/SGOT 17 U/l (0-37); Albumin 2.9 gm/dL (3.2-5.2); Albumin/Globulin Ratio 1.1 (1.0-2.3); Alkaline Phosphatase 87 U/L (39-117); Bilirubin,Total 0.3 mg/dL (0.0-1.0); Blood Urea Nitrogen 9 mg/dl (8-23); Calcium 8.2 mg/dl (8.6-10.4); Carbon Dioxide 27 mmol/L (22-30); Chloride 103 mmol/L (96-108); Globulin 2.7 gm/dL (2.2-3.7); Glomerular Filtration Rate 92; Glucose 94 mg/dL (70-105)
[2019-08-30] MEDS: PANTOPRAZOLE 40 MG TABLET PO SCH (07:53)
--- NOTE | 2019-08-30 08:28 | Operative Note ---
DATE OF OPERATION: 08/28/2019 PREOPERATIVE DIAGNOSIS: Garden grade IV femoral neck fracture, completely displaced left hip. POSTOPERATIVE DIAGNOSIS: [place] grade IV femoral neck fracture, completely displaced left hip. PROCEDURE: Left hip hemiarthroplasty. SURGEON: Meliza Oreilly M.D. GATEKEEPER SURGEON: Charles Soares PA-C. This provider's expertise and technical skill were required throughout the case. The PA assisted with preoperative coordination, intraoperative retraction, wound closure, dressing and splint application, as well as postoperative documentation and care coordination. ANESTHESIA: Spinal with LMA assist. ESTIMATED BLOOD LOSS: 150 mL COMPLICATIONS: None noted. SPECIMENS REMOVED: None. DRAINS: None. IMPLANTS: DePuy CMW3 bone cement 40 grams x2, DePuy cementralizer stem 13 mm cemented, DePuy [place] femoral stem, basic tapered cemented size 7, DePuy Modular calcar tapered spacer + 0 DePuy Modular [place] fractured head hip ball 48 mm diameter. INDICATIONS: The patient fell and was unable to ambulate. Radiographs have confirmed a displaced femoral neck fracture. The patient was admitted to the hospital and underwent medical clearance. After a long discussion about treatment options, the patient elected to proceed with a hip hemiarthroplasty. The risks and benefits were discussed with the patient in detail including, but not limited to, the risks of anesthesia, problems with the heart or lungs related to anesthesia, infection, compromise or injury to the nerves and blood vessels, deep venous thrombosis, pulmonary embolism, pneumonia, continued pain after surgery, worsening pain or symptoms after surgery, swelling, loss of motion, instability, leg length discrepancy, and need for repeat surgery. DESCRIPTION OF PROCEDURE: The patient was seen in pre-anesthesia waiting room where all questions were answered and the correct side and site were identified and marked. The patient was then brought to the operating room and administered the anesthetic and given preoperative antibiotics. A time-out was then called. The patient was placed in the lateral decubitus position with all prominences well padded using the [place] frame and the extremity was prepped and draped in the usual sterile fashion. A standard posterior approach was made. We dissected through the skin and subcutaneous tissue to the deep fascia. The deep fascia was split in line with the incision and a Charnley retractor was placed. We exposed, tagged, and incised the short external rotators and piriformis tendon and retracted them posteriorly to help protect the sciatic nerve which was palpated throughout the case. We then performed a T-capsulotomy and tagged the capsule edges. The hip was then dislocated and a femoral neck osteotomy was performed to the presurgical templated level, off the lesser trochanter. The head was removed and sized. The acetabulum was inspected and did not have a significant degree of osteoarthritis. All bone and fracture debris was removed. Our attention was now turned to the femur. We placed retractors for visualization, internally rotated the femur, and established intramedullary access. We incrementally broached our stem to a stable platform medial, lateral, and rotationally with the appropriate version. We then performed a calcar reaming off the broach. Trials were then placed and optimized for leg length, soft tissue tension, and stability. Best stability, length, and offset characteristics were obtained with these sizes. We removed all trials and impacted the femoral stem to its broached location using a fourth-generation cementing technique and placed the head. Final reduction was performed. Again, good stability, leg length, and offset characteristics were noted. We irrigated with three liters of antibiotic saline. We closed the capsule with #2 FiberWire. We closed the fascia with a combination of #2 Stratafix and #0 Vicryl. We closed the subcutaneous tissue and skin in layers out to ashvin in the skin. A sterile pressure dressing and abduction wedge was applied. All needle and sponge counts were correct. The patient was transferred to the recovery room in stable condition. LEONCIO:meenu Job ID: [id number] Doc ID: [id number] Meliza Oreilly MD
[2019-08-30] MEDS: DIVALPROEX SODIUM 250 MG TABLET PO SCH ×2 (08:54→20:31)
[2019-08-30] MEDS: levETIRAcetam 500 MG TABLET PO SCH ×2 (08:54→20:31)
[2019-08-30] MEDS: LOSARTAN 25 MG TABLET PO SCH (08:54)
[2019-08-30] MEDS: ENOXAPARIN 30 MG/0.3 ML SYRINGE SQ SCH ×2 (08:54→20:32)
[2019-08-30] MEDS: DOCUSATE SODIUM 100 MG CAPSULE PO SCH ×2 (08:54→20:32)
[2019-08-30] MEDS: BUDESONIDE 1 PUFF INHALER INH SCH ×2 (08:55→20:33)
--- NOTE | 2019-08-30 09:05 | Consultation ---
DATE OF CONSULTATION: 08/28/2019 ADMITTING DIAGNOSIS: Closed left femoral neck fracture. HISTORY OF PRESENT ILLNESS: The patient is a 74-year-old male with alcoholic dementia and a history of hypertension who took a fall while he was living at [facility]. He presented with significant groin pain and inability to bear weight on the left hip and was taken to [facility], and evaluated accordingly. The patient was admitted by the hospitalist and evaluated medically. He had a fairly unremarkable review of systems due to the dementia and this was not reliable. I did talk to a care provider for him, Geneva Coello, who stated that the patient was a limited ambulator before the hip fracture and would amputate only with 2-person assist, primarily would transfer and this was secondary to chronic back problems. FAMILY HISTORY: Malignant neoplasm in his brother. His sister had a malignant neoplasm of both lungs. SOCIAL HISTORY: Patient is a former heavy smoker and alcoholic, currently uses no drugs or alcohol. PAST MEDICAL HISTORY: Osteoarthritis, hypertension, chronic hip arthritis, chronic back pain, chronic loss of appetite, chronic wheezing, IBS, sliding hiatal hernia, flatulence, epigastric pain, enlarged prostate, depression, chronic cough, chronic pain, bloating, chronic anxiety, anemia, abdominal pain, history of duodenitis, and history of meningitis. PAST SURGICAL HISTORY: Laminectomy in 2017, back surgery, colonoscopy, esophagogastroduodenoscopy. MEDICATIONS: 1. Celebrex. 2. Aspirin 81 mg. 3. Depakote ER. 4. Neurontin. 5. Losartan. 6. Magnesium. 7. Cytotec. 8. Levetiracetam. 9. Lorazepam. 10. Oxycodone. 11. Zyprexa. 12. Budesonide. 13. Remeron. 14. Trazodone. DRUG ALLERGIES: AMITRIPTYLINE, TAMSULOSIN, TRAZODONE-mild reactions. PHYSICAL EXAM: VITAL SIGNS: Stable. Temperature 98.6, pulse 66, respiratory rate 17, blood pressure 127/58, pulse ox 98% on room air. GENERAL: [id number] 74-year-old male. He was awake, appeared to be in no apparent distress. He was not oriented x3 secondary to his dementia. HEENT: Head normocephalic. He does have increased skin turgor suggestive of some dehydration. Pupils otherwise equal, round, reactive to light. NECK: Supple. CHEST: Clear to auscultation. No wheezing, rales, or rhonchi. CV: Normal S1, S2. No murmurs, gallops, or rubs. ABDOMEN: Soft, nontender. No gross organomegaly. No guarding, rigidity or rebound tenderness. LABORATORY DATA: On admission, hemoglobin 10.4, hematocrit 31.8, INR 1.0. RADIOLOGIC STUDIES: AP pelvis and lateral left hip shows a left femoral neck fracture and a chronic-appearing right greater trochanteric fracture. IMPRESSION: Acute left femoral neck fracture in a demented patient with fairly low demand, a non-ambulator prior to fracture. PLAN: Dr. Oreilly has recommended a left cemented hemiarthroplasty upon clearance from hospitalist for surgery. The patient understands the benefits, risks and alternatives to the surgery as these were explained to him. The comprehension, however, may not be as clear due to his history of dementia. Nursing staff coordinated the surgical consent with [employer] [place]. The risks, benefits, and alternatives were discussed including complications of anesthesia that could include heart attack, stroke, or ; blood loss requiring blood transfusion with secondary acquisition of HIV, hepatitis, or AIDS; injury to blood vessels or nerves that could result in chronic pain or paresthesia; infection that could also necessitate further surgery; periprosthetic fractures or injuries that could also facilitate multiple future surgeries. While the list of complications is not all-inclusive, these can be seen most commonly and were discussed prior to the procedure. The patient will under the hospitalist's care medically until cleared for residential facility following the surgery. BAP:meenu Job ID: [id number] Doc ID: [id number] Charles Soares PA-C
[2019-08-30] MEDS: 0.9 % SODIUM CHLORIDE 1,000 ML IV SCH (11:56)
--- NOTE | 2019-08-30 14:20 | Internal Med Progress Note ---
Medical - PN: Subj Patient information: Note initiated : 08/30/19 at 2:16 pm Service Date, if different from initiated Date: [] Patient: Tristan Miller 74 y/o M admitted on 08/27/19 for Lower Extremity Pain. Chief Complaint: [] Interval history: Mr. Miller is a 74 year old M with a history of high blood pressure and dementia who was brought to the ER due to left hip fracture. Patient is demented and all information is obtained from his chart. Patient lives at [facility]. He has left groin pain and was found to have left hip fracture. He does not have any history of fall. In the ER, xray confirmed left hip fracture. Orthopedics Dr. Oreilly was consulted, who will probably do a procedure for him tomorrow. 08/27 Pt does not have new complaints. BP is not controlled. Otherwise vital signs are fine. He will probably have a procedure for his fracture. 08/28 Pt does not have complaints. He is lying in bed, and seems to be comfortable. He underwent left hip hemiarthroplasty by Dr. Oreilly on 08/28/19 T today >=99.0. pulmonary toilet Hb 9.3 today, 10.4 on admission 08/29-intermittently confused, anxious and hollers out frequently. Alert to self only. Tolerating diet. Post hip surgery. No significant pain or oozing surgery site. Hemoglobin 8.6. Sodium improved to 138. - Constitutional Vitals: Vital Signs Temp Pulse Resp BP Pulse Ox 98.2 F 62 18 109/60 95 08/30/19 12:00 08/30/19 12:00 08/30/19 12:00 08/30/19 12:00 08/30/19 12:00 Period Temp Pulse Resp BP Sys/King Pulse Ox Last 24 Hr 98.1 F-100.9 F 53-73 14-18 105-144/58-70 94-97 Intake and Output 08/30/19 08/30/19 08/30/19 05:59 13:59 21:59 Intake Total 300 1240 Output Total 1700 550 Balance -1400 690 Intake & Output: Intake & Output 08/30/19 08/30/19 08/30/19 05:59 13:59 21:59 Intake Total 300 1240 Output Total 1700 550 Balance -1400 690 Intake: IV 1000 Sodium Chloride 0.9% 1,000 ml @ 1000 75 mls/hr IV .[id number] [facility] Rx#: [id number] Oral 300 240 Output: Urine Catheter Amount 1700 550 Other: Meal Lunch Percent of Meal Consumed 100% Feeding Ability Independent Urine Appearance Clear Clear Uretheral (Singh) Clear Urine Color Bright Yellow Bright Yellow Uretheral (Singh) Dark Yellow Urine Odor Normal Exam: Intermittent confused but nondistressed Nonlabored breathing Occasional anxiety Medical - PN: Obj Da - Labs CBC & Chem 7: 08/30/19 04:56 08/30/19 04:56 Labs: Abnormal Lab Results 08/30/19 08/30/19 08/29/19 04:56 04:56 04:36 RBC 2.75 L Hgb 8.6 L Hct 26.6 L RDW 14.9 H Gran % Lymph % (Auto) Lymph # (Auto) 1.47 L Sodium Chloride Glucose 124 H Calcium 8.2 L 8.4 L Alkaline Phosphatase Total Protein 5.6 L 5.8 L Albumin 2.9 L 08/29/19 08/28/19 08/27/19 04:36 05:12 21:08 RBC 2.95 L 3.11 L Hgb 9.3 L 9.8 L Hct 28.3 L 29.6 L RDW 14.6 H Gran % 81.2 H Lymph % (Auto) 10.9 L Lymph # (Auto) 0.69 L 1.49 L Sodium 132 L Chloride 95 L Glucose 122 H Calcium Alkaline Phosphatase 121 H Total Protein Albumin 08/27/19 21:08 RBC 3.32 L Hgb 10.4 L Hct 31.8 L RDW Gran % Lymph % (Auto) Lymph # (Auto) 1.15 L Sodium Chloride Glucose Calcium Alkaline Phosphatase Total Protein Albumin Meds: Medications Acetaminophen (Tylenol) 325 mg PO Q6HP PRN; Protocol PRN Reason: Per Pain Protocol/Fever > 101 Hydrocodone Bitart/Acetaminophen ([place] 10/325mg) 0 tab PO Q4HP PRN; Protocol PRN Reason: Per Pain Protocol Last Admin: 08/30/19 11:59 Dose: 2 tab Documented by: Bisacodyl (Dulcolax) 10 mg [place] Q2-3DAYS PRN PRN Reason: Constipation Budesonide (Pulmicort) 1 puff INH BID [facility] Last Admin: 08/30/19 08:55 Dose: Not Given Documented by: Divalproex Sodium (Depakote Er) 250 mg PO BID [facility] Last Admin: 08/30/19 08:54 Dose: 250 mg Documented by: Docusate Sodium (Colace) 100 mg PO BID [facility] Last Admin: 08/30/19 08:54 Dose: 100 mg Documented by: Enoxaparin Sodium (Lovenox) 30 mg SQ BID [facility] Last Admin: 08/30/19 08:54 Dose: 30 mg Documented by: Gabapentin (Neurontin) 400 mg PO Q8 [facility] Last Admin: 08/30/19 14:02 Dose: 400 mg Documented by: Hydromorphone HCl (Dilaudid) 0.5 mg PO Q4HP PRN; Protocol PRN Reason: Per Pain Protocol Sodium Chloride (Sodium Chloride 0.9%) 1,000 mls @ 75 mls/hr IV .[id number] [facility] Last Admin: 08/30/19 11:56 Dose: 75 mls/hr Documented by: Levetiracetam (Keppra) 1,000 mg PO BID [facility] Last Admin: 08/30/19 08:54 Dose: 1,000 mg Documented by: Lorazepam (Ativan) 0.5 - 1 mg PO Q6HP PRN PRN Reason: Agitation Last Admin: 08/28/19 23:03 Dose: 0.5 mg Documented by: Losartan Potassium (Cozaar) 25 mg PO DAILY [facility] Last Admin: 08/30/19 08:54 Dose: 25 mg Documented by: Magnesium Hydroxide (Milk Of Magnesia) 30 ml PO BIDP PRN PRN Reason: Constipation Mirtazapine (Remeron) 15 mg PO HS [facility] Last Admin: 08/29/19 20:02 Dose: 15 mg Documented by: Morphine Sulfate (Morphine) 0 mg IV Q1HP PRN; Protocol PRN Reason: Per Pain Protocol Last Admin: 08/29/19 00:53 Dose: 2 mg Documented by: Olanzapine (Zyprexa) 2.5 mg PO Q8HP PRN PRN Reason: Agitation Ondansetron HCl (Zofran) 4 mg IV Q6HP PRN PRN Reason: Nausea And Vomiting Ondansetron HCl (Zofran Odt) 4 mg SL Q4HP PRN; Protocol PRN Reason: Nausea And Vomiting Pantoprazole Sodium (Protonix) 40 mg PO QAMAC [facility] Last Admin: 08/30/19 07:53 Dose: 40 mg Documented by: Polyethylene Glycol (Miralax) 17 gm PO DAILYP PRN PRN Reason: Constipation Senna (Senokot) 2 tab PO [facility] Last Admin: 08/29/19 20:03 Dose: 2 tab Documented by: Sodium Biphosphate/Sodium Phosphate (Fleets Adult) 1 dose [place] Q3-4DAYS PRN PRN Reason: Constipation Sodium Chloride (Saline Flush) 10 ml IV Q8 [facility] Last Admin: 08/30/19 14:01 Dose: 10 ml Documented by: Throat Lozenges (Cepacol) 1 lozenge PO PRN PRN PRN Reason: Sore Throat Trazodone HCl (Desyrel) 25 mg PO [facility] Last Admin: 08/29/19 20:03 Dose: 25 mg Documented by: Medical - PN: A/P - Time Spent With Patient Total time spent is greater than 50% in coordination of care (as documented) at patient's floor/unit and/or counseling patient: 25 - 35 minutes - Narrative A/P Narrative: * Left hip fracture-managed per orthopedics. Postop day 2. Continue postoperative care/pain management/DVT prophylaxis per orthopedics. * Patient dementia at baseline * Hyponatremia clinically resolved. * Postoperative blood loss anemia-continue monitoring. No indication for transfusion * Hypertension continue home medication including losartan * History of psychosis continue olanzapine/Keppra/mirtazapine/Depakote. * Anxiety disorder managed as above * Protein calorie malnutrition continue aggressive protein calorie supplements * DNR Plan * Continue postoperative care per orthopedics * Pre-existing well condition management as above * Protein calorie supplements * PT OT * Discharge planning per case management * Fall risk Medical - PN: Qual - Stroke Symptom Onset Unknown: No - VTE Deep Vein Thrombosis/Pulmonary Embolism Present on Admission: No
[2019-08-30] MEDS: traZODone HCL 50 MG TABLET PO SCH (20:31)
[2019-08-30] MEDS: MIRTAZAPINE 15 MG TABLET PO SCH (20:31)
[2019-08-30] MEDS: SENNOSIDES 1 TABLET PO SCH (20:32)
[2019-08-31] MEDS: HYDROcodone/APAP 10/325MG TABLET PO PRN ×4 (00:24→12:39)
[2019-08-31] MEDS: 0.9 % SODIUM CHLORIDE 1,000 ML IV SCH (01:30)
[2019-08-31] MEDS: GABAPENTIN 400 MG CAPSULE PO SCH (05:06)
[2019-08-31 06:21] LABS: Basophils # (Auto) 0.03 K/mcL (0.00-0.30); Basophils % (Auto) 0.5 % (0.0-2.0); Eosinophils % (Auto) 3.5 % (0.0-7.0); Granulocytes % (Auto) 55.5 % (38.0-78.0); Hematocrit 27.2 % (40.1-51.0); Hemoglobin 8.5 g/dL (13.7-17.5); Lymphocytes # (Auto) 1.77 K/mcL (1.50-4.80); Lymphocytes % (Auto) 31.3 % (15.5-49.0); Mean Cell Volume 98.2 fL (80.0-100.0); Mean Corpuscular HGB Conc 31.3 g/dL (31.0-36.0); Mean Platelet Volume 9.8 fL (7.4-10.4); Monocytes # (Auto) 0.52 K/mcL (0.10-0.90); Monocytes % (Auto) 9.2 % (1.0-12.0); Platelet Count 233 K/mcL (140-440); RBC 2.77 M/mcL (4.63-6.08); Red Cell Distribution Width 14.7 % (11.5-14.5); WBC 5.7 K/mcL (4.50-11.00)
[2019-08-31] MEDS: 0.9 % SODIUM CHLORIDE 10 ML SYRINGE IV SCH (06:33)
[2019-08-31 06:44] LABS: ALT/SGPT < 5 U/l (0-40); AST/SGOT 17 U/l (0-37); Albumin 2.7 gm/dL (3.2-5.2); Albumin/Globulin Ratio 0.8 (1.0-2.3); Alkaline Phosphatase 88 U/L (39-117); Bilirubin,Total 0.3 mg/dL (0.0-1.0); Blood Urea Nitrogen 9 mg/dl (8-23); Calcium 8.8 mg/dl (8.6-10.4); Carbon Dioxide 23 mmol/L (22-30); Chloride 101 mmol/L (96-108); Globulin 3.2 gm/dL (2.2-3.7); Glomerular Filtration Rate 92; Glucose 88 mg/dL (70-105)
[2019-08-31] MEDS: DIVALPROEX SODIUM 250 MG TABLET PO SCH (08:53)
[2019-08-31] MEDS: DOCUSATE SODIUM 100 MG CAPSULE PO SCH (08:53)
[2019-08-31] MEDS: ENOXAPARIN 30 MG/0.3 ML SYRINGE SQ SCH (08:53)
[2019-08-31] MEDS: PANTOPRAZOLE 40 MG TABLET PO SCH (08:54)
[2019-08-31] MEDS: LOSARTAN 25 MG TABLET PO SCH (08:54)
[2019-08-31] MEDS: levETIRAcetam 500 MG TABLET PO SCH (08:54)
[2019-08-31] MEDS: BUDESONIDE 1 PUFF INHALER INH SCH (08:55)
--- NOTE | 2019-08-31 10:53 | Discharge Summary ---
Medical - DS: Prov Patient information: Note initiated : 08/31/19 at 10:50 am Service Date, if different from initiated Date: [] Patient: Tristan Miller 74 y/o M admitted on 08/27/19 for Lower Extremity Pain. Chief Complaint: [] Date of admission: 08/27/19 23:36 Discharge date: 08/31/19 Primary care physician: Miriam Snaders Consults: 08/27/19 Consult to Physician [CONS] Stat Comment: Consulting Provider: Franc Oreilly Reason For Exam: Physician to Consult Consult to Physician [CONS] Stat Comment: Consulting Provider: Darwin Fierro Reason For Exam: Physician to Consult Medical - DS: Meds - Discharge Medications Prescriptions: Enoxaparin [Lovenox] 30 mg SQ BID #56 syringe Prescription Printed HYDROcodone/APAP 10/325MG [Mccoll 10-325Mg] 1 tab PO Q4H PRN #60 tab PRN Reason: Pain Prescription Printed Active and Home Medications: Home Medications Aspirin [[place] Aspirin EC] 81 mg PO QAM 03/22/19 [History Confirmed 08/28/19 Last Taken 08/27/19 08:00] Celecoxib [Celebrex] 200 mg PO DAILY 03/22/19 [History Confirmed 08/28/19 Last Taken 08/27/19 08:00] Divalproex Sodium [Depakote ER] 250 mg PO BID 03/22/19 [History Confirmed 08/28/19 Last Taken 08/27/19 17:00] Gabapentin [Neurontin] 400 mg PO TID 03/22/19 [History Confirmed 08/28/19 Last Taken 08/27/19 17:00] Losartan Potassium 25 mg PO DAILY 03/22/19 [History Confirmed 08/28/19 Last Taken Unknown] Magnesium Oxide [Magnesium] 400 mg PO DAILY 03/22/19 [History Confirmed 08/28/19 Last Taken 08/27/19 08:00] Misoprostol [Cytotec] 100 mcg PO TIDCC 03/22/19 [History Confirmed 08/28/19 Last Taken 08/27/19 17:00] levETIRAcetam [Levetiracetam] 1,000 mg PO BID 03/22/19 [History Confirmed 08/28/19 Last Taken 08/27/19 08:00] LORazepam [Lorazepam] 0.5 - 1 mg PO Q6HP PRN 04/17/19 [History Confirmed 08/28/19 Last Taken 08/27/19 17:00] oxyCODONE HCL [Oxycodone HCl] 5 mg PO PRN PRN 04/17/19 [History Confirmed 08/28/19 Last Taken Unknown] OLANZapine [Zyprexa] 2.5 mg PO Q8HP PRN #30 tab 04/21/19 [Rx Confirmed 08/28/19 Last Taken Unknown] Budesonide 1 unit INH BID 08/27/19 [History Confirmed 08/28/19 Last Taken 08/27/19 17:00] Mirtazapine [Remeron] 15 mg PO HS 08/27/19 [History Confirmed 08/28/19 Last Taken 08/27/19 17:00] traZODone HCL 50 mg HS 08/27/19 [History Confirmed 08/28/19 Last Taken 08/26/19 19:00] HYDROcodone/APAP 10/325MG [Mccoll 10-325Mg] 1 tab PO Q4H PRN #60 tab 08/28/19 [Rx Last Taken Unknown] Sodium Chloride 1 gm PO DAILY 08/28/19 [History Confirmed 08/28/19 Last Taken 08/27/19 12:00] Enoxaparin [Lovenox] 30 mg SQ BID #56 syringe 08/31/19 [Rx Last Taken Unknown] Medical - DS: Hosp Hospital Course: Discharge diagnosis * Left hip fracture-managed per orthopedics. Postop day 3. Continue pos toperative care/pain management//physical therapy as per orthopedics. Transferring to SNF. * Dementia at baseline * Hyponatremia clinically resolved. * Postoperative blood loss anemia-stable, no indication for transfusion * Hypertension stable on home medication including losartan * History of psychosis stable on olanzapine/Keppra/mirtazapine/Depakote. * Anxiety disorder managed as above * Protein calorie malnutrition continue aggressive protein calorie supplements Brief hospital course Mr. Miller is a 74 year old M with a history of high blood pressure and dementia who was brought to the ER due to left hip fracture. Patient is demented and all information is obtained from his chart. Patient lives at [facility]. He has left groin pain and was found to have left hip fracture. He does not have any history of fall. In the ER, xray confirmed left hip fracture. Orthopedics Dr. Oreilly was consulted, who will probably do a procedure for him tomorrow. 08/27 Pt does not have new complaints. BP is not controlled. Otherwise vital signs are fine. He will probably have a procedure for his fracture. 08/28 Pt does not have complaints. He is lying in bed, and seems to be comfortable. He underwent left hip hemiarthroplasty by Dr. Oreilly on 08/28/19 T today >=99.0. pulmonary toilet Hb 9.3 today, 10.4 on admission 08/29-intermittently confused, anxious and hollers out frequently. Alert to self only. Tolerating diet. Post hip surgery. No significant pain or oozing surgery site. Hemoglobin 8.6. Sodium improved to 138. 08/30-patient discharging to [facility] for posthospitalization/postoperative rehab/therapies. No overnight events. No additional concerns per nursing staff. Discharge diagnosis: . - Time Spent with Patient Total time spent providing and/or coordinating discharge services: Greater than 30 minutes Medical - DS: Exam - Constitutional Vitals: Vital Signs Temp Pulse Resp BP Pulse Ox 08/31/19 08:00 64 18 95 08/31/19 07:28 98.4 F 64 18 130/70 95 08/31/19 07:00 64 08/31/19 04:53 98.1 F 80 18 157/76 97 08/30/19 23:05 99.7 F H 72 18 146/61 92 08/30/19 20:16 99.3 F H 71 18 126/60 97 08/30/19 16:00 98.0 F 71 18 141/67 95 08/30/19 15:00 62 08/30/19 12:00 98.2 F 62 18 109/60 95 08/30/19 11:00 73 Intake and Output 08/30/19 08/31/19 08/31/19 21:59 05:59 13:59 Intake Total 1140 1400 240 Output Total 401 200 1 Balance 739 1200 239 Intake: IV 1000 Sodium Chloride 0.9% 1,000 ml @ 1000 75 mls/hr IV .[id number] [facility] Rx#: [id number] Oral 1140 400 240 Output: Void Amount 400 200 # of times incontinent of urine 1 1 Other: Meal Dinner Breakfast Percent of Meal Consumed 75% 100% Feeding Ability Assist with Tray Set Up Assist with Tray Set Up Urine Appearance Clear Clear Clear Urine Color Bright Yellow Bright Yellow Bright Yellow Urine Odor Normal # Voids 1 Weight 135 lb 8 oz Medical - DS: Data Labs on day of discharge: Labs from last 24 hours 08/31/19 08/31/19 05:25 05:25 WBC 5.7 RBC 2.77 L Hgb 8.5 L Hct 27.2 L MCV 98.2 MCH 30.7 MCHC 31.3 RDW 14.7 H Plt Count 233 MPV 9.8 Gran % 55.5 Lymph % (Auto) 31.3 Reagan % (Auto) 9.2 Eos % (Auto) 3.5 Baso % (Auto) 0.5 Gran # 3.14 Lymph # (Auto) 1.77 Reagan # (Auto) 0.52 Eos # (Auto) 0.20 Baso # (Auto) 0.03 Sodium 136 Potassium 4.0 Chloride 101 Carbon Dioxide 23 Anion Gap 12.0 BUN 9 Creatinine 0.7 GFR Calculation 92 Glucose 88 Calcium 8.8 Total Bilirubin 0.3 AST 17 ALT < 5 Alkaline Phosphatase 88 Total Protein 5.9 Albumin 2.7 L Globulin 3.2 Albumin/Globulin Ratio 0.8 L Medical - DS: A/P - Patient/Caregiver Discharge Instructions Activity: as per physical therapy, increase activity as tolerated Diet: Regular Diet Additional Instructions: Follow-up PCP in 5 days F/u orthopedics as scheduled by orthopedics along with post op care. Post op DVT prophylaxis per orthopedics enoxaparin 30 twice daily I recommend SNF physician to check CBC BMP UA as a posthospital follow-up in 1 week. Continue aggressive bowel regimen to prevent constipation Continue fall precautions Continue aggressive PT OT evaluation and treatment at [facility]. ST eval and treatment if indicated High protein calorie supplements All meals on chair sitting upright at 90 degrees to prevent aspiration Return to ER if worsening fever chills shortness of breath, diarrhea, bleeding Continue diet and activity as advised Discussed importance of medication adherence Please review medication list with patient prior to discharge Please schedule follow-up with PCP/Providers prior to discharge and provide printouts Prescriptions: Enoxaparin [Lovenox] 30 mg SQ BID #56 syringe Prescription Printed HYDROcodone/APAP 10/325MG [Mccoll 10-325Mg] 1 tab PO Q4H PRN #60 tab PRN Reason: Pain Prescription Printed Other Amb Orders: OT Discharge Order Location: None Selected Physical Therapy at Discharge - [facility] Location: None Selected Toilet Riser Discharge Order Location: None Selected Walker Location: None Selected - Follow up Plan Follow up with: Miriam Sanders MD [Primary Care Provider] - Disposition: Xfer SNF Prognosis: Good Rehab Potential: Fair I certify that the patient requires SNF services: Yes Overall status at discharge: patient is progressing back to baseline Medical - DS: Qual - VTE Deep Vein Thrombosis/Pulmonary Embolism Present on Admission: No
== END 2019-08-31 13:08 | DRG 469 ==
LOC: ED 19:47 → MEDSUR 23:36
PROVIDERS: ADMIT Internal Medicine; ATTEND Internal Medicine